=== PATIENT | female | born 1950 | race Caucasian/White ===

== ENCOUNTER 2016-07-19 06:44 | Inpatient (IN) | payer OTHER ==
--- NOTE | 2016-07-13 19:36 | HP ---
HISTORY AND PHYSICAL: DATE OF SURGERY: 07/19/16 PROCEDURE: Left total knee arthroplasty. CHIEF COMPLAINT: Left knee pain. HISTORY OF PRESENT ILLNESS: Ms. Swain is a 66-year-old female with complaints of left knee pain. She has failed conservative management, has elected to proceed with a left total knee arthroplasty. The surgery is scheduled for 07/19/[address] Chamberlain. PAST MEDICAL HISTORY: High cholesterol, hypothyroidism, sleep apnea. PAST SURGICAL HISTORY: Deviated septum surgery and 3 surgeries on her left hand. CURRENT MEDICATIONS: 1. Fluticasone daily. 2. Multivitamin. 3. Calcium. 4. Glucosamine. 5. Bupropion. 6. Levothyroxine. 7. Simvastatin. 8. Ibuprofen. ALLERGIES: SULFA DRUGS. FAMILY HISTORY: Prostate and skin cancer. SOCIAL HISTORY: She is a 66-year-old female. She lives with her . 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 She does not smoke or use drugs. She uses occasional alcohol. REVIEW OF SYSTEMS: A complete 14-point review of systems was reviewed with the patient. It is positive for hypothyroidism. She denies ever having any anesthesia problems, history of DVT, PE, hepatitis C, or HIV. PHYSICAL EXAMINATION GENERAL: She is well developed, well nourished, in no acute distress. VITAL SIGNS: She stands 5 feet 4 inches tall, weighs 176 pounds. Her blood pressure is 123/69, her heart rate is 64. HEENT: She is normocephalic, atraumatic. NECK: Supple. No palpable lymph nodes. Trachea is midline. PULMONARY: Lungs are clear to auscultation bilaterally. No wheezes, rhonchi, or rales. CARDIO: Regular rate and rhythm. Strong S1 and S2. No murmurs, gallops, or rubs. No peripheral edema. ABDOMEN: Soft, nontender, nondistended. MUSCULOSKELETAL: Left lower extremity, the skin is intact. She walks with a slightly antalgic type gait, favoring her left leg. There is moderate joint effusion, tenderness over the medial and lateral joint line. Full range of motion of the left knee, no varus or valgus instability. She has intact sensation with pinprick and light touch of her both legs and feet, 2+ dorsalis pedis pulses and her lower extremity muscle group strength is intact at 5/5. NEUROLOGICAL: She is alert and oriented x3. Cranial nerves II through XII are intact. ASSESSMENT AND PLAN: Ms. Swain is a 66-year-old female with continued complaints of left knee pain. She has failed conservative management and has elected to proceed with a left total knee arthroplasty, which is scheduled for 07/19/16. Dr. Chamberlain went over the risks and benefits of the surgery at today's visit and all of her questions were answered. Percocet, Colace, Coumadin, Zofran were all sent to her pharmacy for postoperative DVT prophylaxis and pain control. Zofran was sent for postoperative nausea, which she experiences with narcotic medications. She will follow up with Dr. Chamberlain 10 to 14 days after the surgery. ELAINE PIÑA [id number]/CPS #: [id number] MTDD
[~2016-07-19 06:44] MED LIST: Buffered Lidocaine 1% SYR 3ML* 3 ML/SYR SYRINGE INTRADERM ONE; Famotidine IV* 10 MG/ML 2 ML (20 mg) IV ONE; Gabapentin CAP(*) 300 MG PO ONE
[2016-07-19] MEDS ORDERED: ceFAZolin 2 GM PREMIX (*) 2 GM/50 ML BAG IVPB ONE (07:15)
[2016-07-19] MEDS ORDERED: Gabapentin CAP(*) 300 MG ONE (07:15)
[2016-07-19] MEDS ORDERED: Famotidine IV* 10 MG/ML 2 ML (20 mg) ONE (07:15)
[2016-07-19] MEDS ORDERED: Buffered Lidocaine 1% SYR 3ML* 3 ML/SYR SYRINGE ONE (07:15)
[2016-07-19] MEDS ORDERED: fentaNYL* 50 MCG/ML 2 ML VIAL (100 MCG VIAL) ONE (08:02)
[2016-07-19] MEDS ORDERED: Midazolam* 1 MG/ML 5 ML VIAL (5 MG) ONE (08:03)
[2016-07-19] MEDS ORDERED: KETAMINE HCL* 50 MG/ML 10 ML VIAL ONE (08:03)
[2016-07-19] MEDS ORDERED: Morphine PF AMP (0.5MG/ML)* 5 MG/10 ML AMP ONE (08:03)
[2016-07-19] MEDS ORDERED: Propofol* 10 MG/ML 20 ML BTL IV PUSH ONE (08:50)
[2016-07-19] MEDS ORDERED: Ketorolac INJ* 30 MG/ML 1 ML VIAL ONE (08:50)
[2016-07-19] MEDS ORDERED: DiMENhydriNATE IV* 50 MG/ML VIAL ONE (08:50)
[2016-07-19] MEDS ORDERED: Dexamethasone IV* 4 MG/ML 1 ML (4 MG) ONE (08:50)
[2016-07-19] MEDS ORDERED: Lidocaine 2% PF * 5 ML VIAL ONE (08:50)
[2016-07-19] MEDS ORDERED: Ondansetron INJ* 2 MG/ML VIAL ONE (08:50)
[2016-07-19] MEDS ORDERED: ROPIVACAINE 5 MG/ML 30 ML BTL (0.5%) ONE (08:56)
[2016-07-19] MEDS ORDERED: DiMENhydriNATE IV* 50 MG/ML VIAL IV PUSH PRN (09:40)
[2016-07-19] MEDS ORDERED: HYDROmorphone INJ* 1 MG/ML CARPUJECT SYRINGE IV PRN (09:40)
[2016-07-19] MEDS ORDERED: Gabapentin CAP(*) 100 MG PO ONE (09:42)
[2016-07-19] MEDS ORDERED: Nalbuphine* 20 MG/ML 1 ML VIAL IV PRN (09:44)
[2016-07-19] MEDS ORDERED: Naloxone* 0.4 MG/ML 1 ML VIAL IV PRN (09:44)
[2016-07-19] MEDS ORDERED: Ondansetron INJ* 2 MG/ML VIAL IV PRN (09:44)
[2016-07-19] MEDS ORDERED: oxyCODONE TAB* 5 MG TAB PO PRN (09:44)
[2016-07-19] MEDS ORDERED: Acetaminophen TAB* 325 MG PO PRN (09:44)
[2016-07-19] MEDS ORDERED: Acetaminophen TAB* 325 MG PO SCH (10:00)
[2016-07-19] MEDS ORDERED: Acetaminophen TAB* 325 MG ONE (10:45)
[2016-07-19] MEDS ORDERED: Magnesium Hydroxide LIQ* 30 ML UDC PO PRN (10:49)
[2016-07-19] MEDS ORDERED: Bisacodyl SUPP* 10 MG SUPP PR PRN (10:49)
[2016-07-19] MEDS ORDERED: diPHENhydraMINE PO* 25 MG PO PRN (10:49)
[2016-07-19] MEDS ORDERED: Gabapentin CAP(*) 100 MG ONE (11:19)
--- NOTE | 2016-07-19 11:38 | RAD ---
INDICATION: Status post total left knee replacement surgery. COMPARISON: Comparison is made with a prior x-ray study of the left knee from February 22, 2016. TECHNIQUE: 2 views of the left knee were obtained. FINDINGS: The patient is status post total left knee replacement surgery. The bones and prostheses are in normal alignment. No fracture is seen. There is a small amount of air within the soft tissues consistent with the patient's recent surgery. IMPRESSION: STATUS POST TOTAL LEFT KNEE REPLACEMENT SURGERY.
--- NOTE | 2016-07-19 13:27 | CONS ---
ATTENDING PHYSICIAN'S ADDENDUM AND CO-SIGN DESIGNATION NOW INCLUDED MEDICAL CONSULTATION DATE OF CONSULT: 07/19/16 PRIMARY CARE PROVIDER: Charlotte Naranjo MD REQUESTING PROVIDER: Brittany Chamberlain MD CONSULTING PROVIDER: ELAINE Morataya ATTENDING PHYSICIAN: Lu Roque MD * (DICTATED BY ELAINE MORATAYA) CHIEF COMPLAINT: Status post left total knee arthroplasty. HISTORY OF PRESENT ILLNESS: This is a 66-year-old female with history of hyperlipidemia, hypothyroidism, and obstructive sleep apnea, compliant with CPAP therapy, who underwent elective total knee arthroplasty by Dr. Chamberlain earlier today. Dr. Chamberlain has requested a medical consultation for comanagement postoperatively. Reviewed preop H and P from the patient's primary care provider, which illustrated no acute concerns. The patient's chronic medical conditions have been under appropriate control and the patient is compliant with her CPAP at home. She denies any recent illness. In the immediate postoperative period, the patient denies any complaints of chest pain, shortness of breath, abdominal pain, nausea, or vomiting. She had a spinal completed and still is rather numb in her lower extremities. She is bradycardic, but normotensive postoperatively , the patient denies any complaints of headache or dizziness. PAST MEDICAL HISTORY: 1. Hyperlipidemia. 2. Hypothyroidism. 3. Obstructive sleep apnea. PAST SURGICAL HISTORY: The patient has had multiple surgeries on her left hand and had a rhinoplasty completed for a deviated septum in the past. HOME MEDICATIONS: 1. Calcium and vitamin D supplement 1 tablet p.o. twice daily. 2. Glucosamine chondroitin 1 capsule p.o. twice daily. 3. Ibuprofen 800 mg p.o. q. 4 hours as needed. 4. Levothyroxine 88 mcg p.o. daily. 5. Nasonex 1 spray in both nares twice daily as needed. 6. Multivitamin 1 tablet p.o. daily. 7. Simvastatin 10 mg p.o. at bedtime. 8. Wellbutrin 150 mg p.o. b.i.d. SOCIAL HISTORY: The patient lives at home with her . She is employed at [employer]. Denies any history of tobacco abuse and consumes alcohol on an occasional basis. REVIEW OF SYSTEMS: As listed above in the HPI and otherwise negative. PHYSICAL EXAM: Recent Vitals: Temperature 97.5 degrees Fahrenheit, pulse 54 beats per minute, respiratory rate 16 per minute, oxygen saturation 98% on room air, and blood pressure 130/76 mmHg. General: This is a very pleasant, middle- aged female in no acute distress, who is smiling in the recovery area. HEENT: Head is normocephalic, atraumatic with moist mucous membranes. Cardiovascular: Heart has regular rate and rhythm without murmurs, rubs, or gallops. Respiratory: Lungs are clear to auscultation without wheezes, crackles, or rhonchi. Abdomen: Abdomen is soft and nontender to palpation. Extremities: Left knee is in a postoperative dressing with Cryo/Cuff in place. It appears to be intact neurovascularly distally. Psych: The patient is alert and appropriately oriented. LABORATORY EVALUATION: Reviewed preop labs dated 07/13/16, which included CBC was within normal limits, specifically preop hemoglobin was 14.7 g/dL. Comprehensive metabolic panel from that time was unremarkable, preop creatinine 1.05 with an estimated GFR of 52.8. Last TSH available for review is from December of 2015, which was normal at 2.62. Cholesterol panel from that same time showed a total cholesterol of 190 with an LDL of 89, HDL of approximately 50, and triglycerides 260. IMAGING: Chest x-ray from 07/13/16 shows no acute findings and no significant chronic findings appreciated. EKG from 07/19/16 shows a normal sinus rhythm with a rate of about 54. ASSESSMENT AND PLAN: This is a 66-year-old female with hyperlipidemia, hypothyroidism and obstructive sleep apnea, who presents for elective total knee arthroplasty by Dr. Brittany Chamberlain performed today 07/19/16. Hospitalist group has been requested for medical consult. 1. Status post left total knee arthroplasty. Postoperative management per Orthopedic Surgery including pain control, DVT prophylaxis, and discharge planning. 2. Postoperative bradycardia - review of her preop EKG and vitals show that the patient is borderline bradycardic and she did undergo spinal anesthesia which sometimes can contribute to some mild bradycardia. She is normotensive and asymptomatic at this time. I do not believe that any intervention is necessary. We would continue with typical postoperative vital checks per nursing protocol. 3. Hypothyroidism - continue levothyroxine. 4. Hyperlipidemia. Continue her statin therapy. 5. Obstructive sleep apnea - the patient brought her own CPAP with her and this has been ordered for use. 6. DVT prophylaxis per Orthopedic Surgery. The patient has Lovenox and Coumadin ordered for her postoperatively. 7. Code status. The patient is full code. 8. Healthcare proxy is the patient's , Josefina Morales. DISPOSITION: The patient is postoperative day 0, status post left total knee replacement. Recommendations include to continue all home medications and home CPAP therapy. There are really no significant medical concerns warranting continuous medical consultation. Hospitalist group will sign off at this time. We are happy to reevaluate the patient if there is any complications postoperatively. We recommend daily hemoglobin and basic metabolic panel on postop day 1. ELAINE MORATAYA DATE OF CONSULTATION: 07/19/16 ADDENDUM: Madeleine Swain is a 66-year-old female with history of dyslipidemia and hypothyroidism as well as obstructive sleep apnea who is status post left knee surgery with Dr. Chamberlain today. We were asked to consult in regards to the patient's chronic medical conditions. For further details of the patient's presentation and plan, please see history and physical/consultation report dictated by ELAINE Morataya, on 07/19/16 with which, I agree. LU ROQUE MD CC: Brittany Chamberlain MD* [id number]/CPS #: [id number] Jem- [id number]/CPS #: [id number] JOCY
--- NOTE | 2016-07-19 14:16 | CONS ---
CONSULTATION REPORT:* DATE OF CONSULTATION: 07/19/16 ADDENDUM: Madeleine Swain is a 66-year-old female with history of dyslipidemia and hypothyroidism as well as obstructive sleep apnea who is status post left knee surgery with Dr. Chamberlain today. We were asked to consult in regards to the patient's chronic medical conditions. For further details of the patient's presentation and plan, please see history and physical/consultation report dictated by ELAINE Osei, on 07/19/16 with which, I agree. [id number]/[facility] #: [id number] [facility]
[2016-07-19] MEDS: ceFAZolin 1 GM in Dextrose (*) 1 GM/50 ML BAG IVPB SCH ×2 (14:36→20:39)
[2016-07-19] MEDS: Ibuprofen TAB* 600 MG PO SCH ×2 (15:58→22:10)
[2016-07-19] MEDS ORDERED: Warfarin TAB(*) 6 MG PO ONE (17:00)
[2016-07-19] MEDS: buPROPion SR TAB.SR* 150 MG PO SCH (20:38)
[2016-07-19] MEDS: Atorvastatin* 10 MG TAB PO SCH (20:39)
[2016-07-19] MEDS: Docusate CAP* 100 MG PO SCH (20:39)
[2016-07-20] MEDS ORDERED: Morphine INJ* 2 MG/ML 1 ML CARPUJECT IV PRN (01:44)
[2016-07-20] MEDS ORDERED: Ondansetron INJ* 2 MG/ML VIAL IV PRN (01:44)
[2016-07-20] MEDS ORDERED: Acetaminophen TAB* 325 MG PO PRN (01:44)
[2016-07-20] MEDS ORDERED: oxyCODONE/Acetamin 5/325 MG* TAB PO PRN (01:44)
[2016-07-20] MEDS: ceFAZolin 1 GM in Dextrose (*) 1 GM/50 ML BAG IVPB SCH (02:34)
[2016-07-20] MEDS: Ibuprofen TAB* 600 MG PO SCH ×2 (04:10→10:01)
[2016-07-20] MEDS: Levothyroxine TAB* 88 MCG TAB PO SCH (05:56)
[2016-07-20 07:00] LABS: Hematocrit 33 % (35-47); Hemoglobin 10.7 g/dl (12.0-16.0)
[2016-07-20 07:03] LABS: BUN/Creatinine Ratio 13.6 (8-20); Calcium 8.4 mg/dL (8.6-10.3); EGFR African American 83.2 (>60); EGFR Non-African American 64.7 (>60); Potassium 4.1 mmol/L (3.5-5.0)
--- NOTE | 2016-07-20 07:40 | PN ---
Progress Note - Progress Note SOAP: Subjective: Pt. reports pain is mod-sev this AM. Objective: LLE - dressing c/d/i. distally +df/pf, full sens lt, 2+ dp pulse. Vital Signs: Temp Pulse Resp BP Pulse Ox 97.5 F 57 18 93/51 97 07/20/16 03:58 07/20/16 03:58 07/20/16 07:33 07/20/16 03:58 07/20/16 07:29 Laboratory Results - last 24 hr 07/20/16 07/20/16 07/20/16 06:05 06:05 06:05 Hgb 10.7 L Hct 33 L INR (Anticoag Therapy) 0.97 Sodium 134 Potassium 4.1 Chloride 104 Carbon Dioxide 21 L Anion Gap 9 BUN 12 Creatinine 0.88 Est GFR ( Amer) 83.2 Est GFR (Non-Af Amer) 64.7 BUN/Creatinine Ratio 13.6 Glucose 100 Calcium 8.4 L Assessment: 66 yo F pod 1 s/p LTKA Plan: xrays look good pt/ot - wbat lle 8 mg coumadin tonight, lovenox bridge hct stable d/c plan home with vns
[2016-07-20] MEDS: oxyCODONE/Acetamin 5/325 MG* TAB PO PRN ×4 (07:43→19:56)
[2016-07-20] MEDS: Vitamin THERAPEUTIC TAB PO SCH (08:10)
[2016-07-20] MEDS: Docusate CAP* 100 MG PO SCH ×2 (08:10→19:55)
[2016-07-20] MEDS: buPROPion SR TAB.SR* 150 MG PO SCH ×2 (08:10→19:56)
--- NOTE | 2016-07-20 08:32 | OP ---
OPERATIVE REPORT: DATE OF OPERATION: 07/19/16 DATE OF : 54 SURGEON: Brittany Chamberlain MD WRAPPER COUNTER: ELANIE Taveras ANESTHESIOLOGIST: Dr. Tello. ANESTHESIA: Spinal. PRE-OP DIAGNOSIS: Severe end-stage degenerative osteoarthritis of the left knee joint. POST-OP DIAGNOSIS: Severe end-stage degenerative osteoarthritis of the left knee joint. OPERATIVE PROCEDURE: Left total knee arthroplasty. TOURNIQUET TIME: 50 minutes. ESTIMATED BLOOD LOSS: 200 cc. COMPLICATIONS: None. SPECIMEN: Bone and cartilage from the left knee joint sent to pathology. HARDWARE: This is cemented [employer] total knee hardware. For the femur, a size 4 left post erior stabilized Oxinium femoral component. For the tibia, a size 3 Johanna left tibial base plate. For the insert, a 13-mm posterior stabilized articular insert. For the patella, 29-mm 7.5 thickne ss, 3-peg all-poly patella. BRIEF HISTORY/INDICATIONS: Ms. Swain is a 66-year-old female with years of increasingly severe lef t knee pain. She failed conservative treatment with anti- inflammatories, pain medication, physical therapy, brace wear, intra-articular injections and arthroscopy. At the time of arthroscopy, she w as found to have severe end-stage arthritis under the patella as well as in the medial compartment. The patient had decreased quality of life due to pain and elected to undergo left total knee arthrop lasty. Informed consent was obtained from the patient. She understood the risks of the surgery inc luded but were not limited to bleeding, infection, damage to nearby structures, continued pain, need for further surgery, intraoperative fracture, nerve palsy, hardware failure or loosening, stroke, h eart attack, blood clot, and . The patient wished to proceed. INTRAOPERATIVE FINDINGS: Intraoperatively, the patient was noted to have full thickness degeneratio n of the cartilage in the medial and patellofemoral compartments, significant osteophyte formation. DESCRIPTION OF PROCEDURE: Ms. Swain was identified in the preanesthesia unit. Her left lower extre mity was marked as the correct operative side. Informed consent was signed and placed in the chart. The patient was taken to the operating room and placed under spinal anesthesia. A Thomas catheter was placed. Thigh-high tourniquet was placed on the left thigh. Left lower extremity was prepped a nd draped in the usual sterile fashion. Preop time-out was made to correctly identify the patient's side and site. Appropriate perioperative antibiotics were given within one hour of incision. Tourniquet was inflated. Total tourniquet time for this procedure was 50 minutes. A 12-cm midline incision was made with a 10 blade and carried down to the extensor mechanism. A new 10 blade was used to make a standard medial parapatellar arthrotomy. The patella was subluxed late rally. Electrocautery was used to subperiosteally elevate soft tissue off the superomedial tibia. The knee was flexed up. Anterior horn of the lateral meniscus and ACL was sharply incised. The dri ll was used to enter the distal femur. Intramedullary distal femoral cutting guide was pinned into position on the distal femur. Oscillating saw was used to make the appropriate distal femoral cut. Bony fragments were carefully removed. An external rotation guide was pinned on the distal femur. Distal femur was sized to a size 4. Size 4 multi-cutting jig was placed on the distal femur. Oscil lating saw was used to make the appropriate chamfer cuts. All bony fragments were carefully removed . The PCL was completely released. The tibia was subluxed anteriorly. The extramedullary tibial c utting guide was placed and pinned into proper position on the proximal tibia. Oscillating saw was used to make a proximal tibial cut perpendicular to the mechanical axis of the tibia. Proximal tibi al bone was carefully removed. At this point, the knee was brought out into full extension. A spacer block had good fit. There wa s full extension of the knee. There was good medial and lateral ligamentous balancing. The knee was flexed up. Lamina thermal molder was placed both medially and laterally. Any remaining menis cus was carefully removed with electrocautery. Curved osteotome and curette were used to remove any osteophytes from the posterior femoral condyles. Tibial tray and drop crista once again confirmed sat isfactory proximal tibial cut. The trial 4 left femur was impacted onto the distal femur. The box for the posterior stabilized implant was prepared using a reamer and box cut osteotome. A size 3 tr ial tibial and 11 mm insert trial were placed. The knee was taken through a range of motion. The k nee had full extension, and 130 degrees of flexion with good patellofemoral tracking. The patella was everted. 7 mm of patellar bone and cartilage were carefully removed with an oscilla ting saw. The patella was sized to a size 29. Three pegs were drilled through the size 29 guide. A 7.5 thickness 29 trial was placed and the knee was taken through a range of motion. There was goo d patellofemoral tracking. All trials were carefully removed. The tibia was subluxed anteriorly and sized to a size 3. Proxim al tibia was prepared using a size 3 keel punch. All bony cut surfaces were copiously irrigated wit h sterile saline and dried. The final implants were cemented into place, starting with the tibia, f ollowed by the femur, and last the patella. A 13-mm trial was placed and the knee was brought into full extension. The cement was allowed to fully cure, and the tourniquet was turned down at 50 delbert aime. Posterior capsule was checked for any bleeding or excess cement. Final insert was a 13 mm posterior stabilized articular insert. This was locked in position on the tibial tray. Stability of the ins ert and the tibial tray was checked and rechecked, and noted to be stable. The knee was copiously irrigated with sterile saline. Full range of motion 0 to 125 degrees of flex ion with good patellofemoral tracking. Good extension and flexion gap balancing. Good medial and l ateral ligamentous balancing. The extensor mechanism was closed using interrupted #1 Vicryls. The rest of the incision was closed in a layered fashion using 0 and 2-0 Vicryls. Skin was closed using running 3-0 nylon suture. Sterile Xeroform, 4x4s, and Webril were used to cover the incision. YAN wrap and cold pack were placed over this. The patient's anesthesia was reversed without difficulty. She was taken to the PACU in stable condition. Intended weightbearing will be weightbearing as to lerated. Intended DVT prophylaxis will be Coumadin with Lovenox bridge. [id number]/[facility] #: [id number]
[2016-07-20] MEDS: Enoxaparin(*) 40 MG/0.4 ML SYR SUBCUT SCH (10:43)
[2016-07-20] MEDS ORDERED: Warfarin TAB(*) 4 MG PO ONE (17:00)
[2016-07-20] MEDS: Cyclobenzaprine TAB* 10 MG PO PRN (19:55)
[2016-07-20] MEDS: Atorvastatin* 10 MG TAB PO SCH (19:56)
[2016-07-21] MEDS: oxyCODONE/Acetamin 5/325 MG* TAB PO PRN ×5 (00:02→20:49)
[2016-07-21] MEDS: oxyCODONE TAB* 5 MG TAB PO PRN (02:54)
[2016-07-21] MEDS: Levothyroxine TAB* 88 MCG TAB PO SCH (05:34)
[2016-07-21] MEDS: Cyclobenzaprine TAB* 10 MG PO PRN ×2 (05:34→21:02)
[2016-07-21 07:14] LABS: Hematocrit 29 % (35-47); Hemoglobin 10.1 g/dl (12.0-16.0)
[2016-07-21] MEDS: oxyCODONE SR TAB(*) 10 MG TAB.SR PO SCH ×2 (08:17→20:48)
[2016-07-21] MEDS: Vitamin THERAPEUTIC TAB PO SCH (08:17)
[2016-07-21] MEDS: Docusate CAP* 100 MG PO SCH ×2 (08:17→20:48)
[2016-07-21] MEDS: buPROPion SR TAB.SR* 150 MG PO SCH ×2 (08:18→20:48)
--- NOTE | 2016-07-21 08:56 | PN ---
Progress Note - Progress Note SOAP: Subjective: []Patient seen at bedside. Doing fairly well. Oxycontin has been given this am. Objective: [] Vital Signs Temp 98.4 F 07/21/16 07:32 Pulse 65 07/21/16 07:32 Resp 16 07/21/16 08:17 BP 112/58 07/21/16 07:32 Pulse Ox 98 07/21/16 07:32 Intake & Output 07/20/16 07/21/16 07/21/16 18:59 06:59 18:59 Intake Total 2215 1240 Output Total 2575 3850 700 Balance -360 -2610 -700 Intake: IV Fluids 990 LR 990 IVPB 55 ABX - CEFAZOLIN 55 Oral 1170 1240 Output: Urine 1700 3850 700 Thomas 875 Laboratory Results - last 24 hr 07/21/16 07/21/16 06:49 06:49 Hgb 10.1 L Hct 29 L INR (Anticoag Therapy) 1.22 H Left knee dressing changed this am by Dr. Chamberlain, benign calf non tender and soft, Rusty's negative NVI +DF/PF Assessment: []s/p Left total knee arthoplasty POD #2 Plan: []PT/OT WBAT Coumadin 8mg tonight Home tomorrow
[2016-07-21] MEDS: Enoxaparin(*) 40 MG/0.4 ML SYR SUBCUT SCH (11:24)
[2016-07-21] MEDS ORDERED: Warfarin TAB(*) 4 MG PO ONE (17:00)
[2016-07-21] MEDS: Atorvastatin* 10 MG TAB PO SCH (20:48)
[2016-07-22] MEDS: oxyCODONE TAB* 5 MG TAB PO PRN (01:11)
[2016-07-22] MEDS: oxyCODONE/Acetamin 5/325 MG* TAB PO PRN ×3 (04:20→12:40)
[2016-07-22] MEDS: Cyclobenzaprine TAB* 10 MG PO PRN (05:12)
[2016-07-22] MEDS: Levothyroxine TAB* 88 MCG TAB PO SCH (05:12)
[2016-07-22 07:05] LABS: Hematocrit 28 % (35-47); Hemoglobin 9.8 g/dl (12.0-16.0)
[2016-07-22] MEDS: oxyCODONE SR TAB(*) 10 MG TAB.SR PO SCH (08:39)
[2016-07-22] MEDS: buPROPion SR TAB.SR* 150 MG PO SCH (08:40)
[2016-07-22] MEDS: Docusate CAP* 100 MG PO SCH (08:40)
[2016-07-22] MEDS: Vitamin THERAPEUTIC TAB PO SCH (08:40)
[2016-07-22] MEDS: Enoxaparin(*) 40 MG/0.4 ML SYR SUBCUT SCH (11:10)
--- NOTE | 2016-07-22 11:51 | PN ---
Progress Note - Progress Note SOAP: Subjective: [c. Patient reports pain under control with current pain regimen. + BM, moving well, working well with PT. ALl questions answered to her and her partner. ] Objective: [General- Well appearing, NAD resting comfortably in bed. MSK- Incision c/d/i. no erythema. drainage noted. + dorsi/ plantarflexion b/ l, neg homans b/l, sensation to light touch grossly intact. PT 2+ L leg. moderate swelling over L knee. ] Active Medications Generic Name Dose Route Start Last Admin Trade Name Freq PRN Reason Stop Dose Admin Acetaminophen 650 mg 07/20/16 01:44 Tylenol Tab* PO Q4H PRN PAIN OR TEMPERATURE Atorvastatin Calcium 5 mg 07/19/16 21:00 07/21/16 20:48 Lipitor* PO 5 mg BEDTIME MY Administration Bisacodyl 10 mg 07/19/16 10:49 07/21/16 20:51 Dulcolax Supp* AK 10 mg DAILY PRN Administration constipation Bupropion HCl 150 mg 07/19/16 21:00 07/22/16 08:40 Wellbutrin Sr Tab* PO 150 mg BID MY Administration Cyclobenzaprine HCl 10 mg 07/20/16 17:47 07/22/16 05:12 Flexeril Tab* PO 10 mg Q8H PRN Administration SPASMS Diphenhydramine HCl 25 mg 07/19/16 10:49 Benadryl Po* PO Q6H PRN itching or insomnia Docusate Sodium 100 mg 07/19/16 21:00 07/22/16 08:40 Colace Cap* PO 100 mg BID MY Administration Enoxaparin Sodium 40 mg 07/20/16 11:00 07/22/16 11:10 Lovenox(*) SUBCUT Not Given Q24H MY Lactated Ringer's 1,000 mls @ 100 mls/hr 07/19/16 11:00 07/19/16 23:12 Lactated Ringers 1000 Ml Bag* IV 100 mls/hr PER RATE MY Administration Lactulose 30 ml 07/19/16 10:49 Lactulose* PO Q6H PRN constipation Levothyroxine Sodium 88 mcg 07/20/16 06:00 07/22/16 05:12 Synthroid Tab* PO 88 mcg 0600 MY Administration Magnesium Hydroxide 30 ml 07/19/16 10:49 07/21/16 08:24 Milk Of Magnesia Liq* PO 30 ml Q6H PRN Administration constipation Morphine Sulfate 2 mg 07/20/16 01:44 07/21/16 00:05 Morphine Inj (Syringe)* IV 2 mg Q30M PRN Administration PAIN - UNCONTROLLED Multivitamins 1 tab 07/20/16 09:00 07/22/16 08:40 Theragran Tab* PO 1 tab DAILY MY Administration Ondansetron HCl 4 mg 07/20/16 01:44 07/21/16 00:06 Zofran Inj* IV 4 mg Q6H PRN Administration nausea Oxycodone HCl 10 mg 07/20/16 01:44 07/22/16 01:11 Roxycodone Tab* PO 10 mg Q4H PRN Administration PAIN - SEVERE Oxycodone HCl 10 mg 07/21/16 09:00 07/22/16 08:39 Oxycontin(*) PO 10 mg Q12HR MY Administration Oxycodone/Acetaminophen 1 tab 07/20/16 01:44 07/20/16 05:56 Percocet 5/325 Tab* PO 1 tab Q4H PRN Administration PAIN - MILD Oxycodone/Acetaminophen 2 tab 07/20/16 01:44 07/22/16 08:40 Percocet 5/325 Tab* PO 2 tab Q4H PRN Administration PAIN - MODERATE Pharmacy Profile Note 1 note 07/20/16 17:00 07/21/16 16:35 Coumadin Daily Reminder* FOLLOW UP 1 note 1700 MY Administration Vital Signs Temp 98.8 F 07/22/16 07:31 Pulse 82 07/22/16 07:31 Resp 16 07/22/16 10:39 BP 127/59 07/22/16 07:31 Pulse Ox 94 07/22/16 07:31 Intake & Output 07/21/16 07/22/16 07/22/16 18:59 06:59 18:59 Intake Total 1959 2039 1049 Output Total 1999 3499 Balance -40 -1460 1050 Intake: Oral 1959 2039 1049 Output: Urine 1999 3499 Other: Estimated Void Medium # Voids 1 Laboratory Results - last 24 hr 07/22/16 07/22/16 06:32 06:33 Hgb 9.8 L Hct 28 L INR (Anticoag Therapy) 2.17 H Assessment: [/- 4mg 2/- 6mg 2/12- 4mg INR check 07/25 ] Plan: [- D/C home today - Follow up with DR. Chamberlain within 10-14 days - DVT prophylaxis- coumadin: 07/22- 4mg /- 6mg /- 4mg INR check 07/25 - Continue current pain regimen ]
[2016-07-22 11:59] VITALS: BP 118/65
--- NOTE | 2016-07-22 23:51 | DS ---
DISCHARGE SUMMARY: DATE OF ADMISSION: 07/19/16 DATE OF DISCHARGE: 07/22/16 CHIEF COMPLAINT: 1. Osteoarthritis, left knee. 2. Elevated cholesterol. 3. Hypothyroidism. 4. Sleep apnea. DISCHARGE DIAGNOSES: 1. Status post left total knee arthroplasty. 2. Elevated cholesterol. 3. Hypothyroidism. 4. Sleep apnea. PROCEDURE: Left total knee arthroplasty. CONSULTATIONS: 1. Physical therapy. 2. Occupational therapy. BRIEF HISTORY: Ms. Swain is a very pleasant 66-year-old female with severe end- stage osteoarthrit is of the left knee who failed conservative treatment and has elected to undergo a left total knee a rthroplasty on 07/19/[address] Brittany Chamberlain. HOSPITAL COURSE: Ms. Swain was admitted to the [facility] on 07/19/16, where she underw ent a left total knee arthroplasty. Postoperatively, she recovered on the surgical short-stay unit. On postoperative day 2, her Thomas was removed and the patient was voiding without difficulty. She was advanced to a regular diet. Her pain was controlled with p.o. oxycodone, p.o. OxyContin, and Fl exeril. She was restarted on her home medications. Her vital signs and labs remained stable. She was able to bear weight as tolerated on the left lower extremity. She advanced appropriately with p hysical therapy and occupational therapy. Her DVT prophylaxis was managed with Lovenox and Coumadin until she reached therapeutic INR. By postoperative day 3, she was orthopedically and medically st able for discharge home with home services. PHYSICAL EXAMINATION: General: The patient is alert and oriented and in no acute distress. She is resting in bed comfortably. Vital Signs: Temperature 98.8, pulse 82, respirations 16, blood press ure 127/59, pulse oxygenation 94%. Incision over left knee, clean, dry and intact with no erythema, no drainage noted. Positive dorsiflexion and plantar flexion of bilateral lower extremities. Negat august Rusty's sign in bilateral lower extremities. Sensation to light touch grossly intact in lower e xtremities. Posterior tibial pulse 2+ on left leg. Moderate swelling noted over left knee. LABORATORY DATA: On the date of discharge, H and H of 9.8 and 28 with an INR of 2.17. RADIOGRAPHS: Postoperative radiographs of the left knee demonstrates satisfactory prosthesis placem ent. DISCHARGE MEDICATIONS: 1. Simvastatin 10 mg p.o. at bedtime. 2. Colace 100 mg p.o. b.i.d. 3. Levothyroxine 88 mcg p.o. daily. 4. Wellbutrin 150 mg p.o. b.i.d. 5. OxyContin 10 mg q.12 hours. 6. Oxycodone 5 to 10 mg p.o. q.4 hours p.r.n. 7. Calcium plus vitamin D 1 tablet b.i.d. 8. Flexeril 10 mg p.o. q.8 hours. p.r.n. 9. Glucosamine and chondroitin 1 tablet p.o. b.i.d. 10. Nasonex 1 spray bilateral nares q.h.s. 11. Daily multivitamin. 12. Coumadin 2 mg 1 to 3 tablets as directed by physician at 5 p.m. daily. CONDITION ON DISCHARGE: Stable. DISCHARGE INSTRUCTIONS: Ms. Swain is a very pleasant 66-year-old female on postoperative day 3, [facility] post post left total knee arthroplasty, which is uncomplicated. She is orthopedically and medi grover stable for discharge to go home with home services. Her labs and vital signs are stable. She will restart her home medications. She will take 4 mg of Coumadin on 07/22/16; on 07/23/16, 6 mg a nd on 07/24/16, 4 mg and will have an INR check on 07/25/16. She will remain weightbearing as lenora ated on the left lower extremity. She will have home physical therapy twice a week. She will take oxycodone as needed for acute pain control and will take OxyContin q.12 hours for long acting pain c ontrol, she will take Colace up to 3 times a day as for constipation. She will follow up with Dr. Shivani barajas in approximately 10 to 14 days for incision check and suture removal. She is instructed to go immediately to the emergency room should she develop chest pain or shortness of breath. Should she develop fever, increasing pain or redness around the incision site, she is to call the office [employer]. ELAINE MORALES [id number]/[facility] #: [id number]
== END 2016-07-22 14:15 | disposition home health service (06) | DRG 470 ==
LOC: AA 06:44 → SSU 13:54
PROVIDERS: ADMIT Orthopaedic Surgery Adult Reconstructive Orthopaedic Surgery; ATTEND Orthopaedic Surgery Adult Reconstructive Orthopaedic Surgery
PROC: 0SRD0J9 Replacement of Left Knee Joint with Synthetic Substitute, Cemented, Open Approach (ICD-10-PCS; principal; 2016-07-19 08:30)
DX: M17.12 Unilateral primary osteoarthritis, left knee (principal); R00.1 Bradycardia, unspecified; G47.30 Sleep apnea, unspecified; E78.00 Pure hypercholesterolemia, unspecified; E03.9 Hypothyroidism, unspecified; Z88.2 Allergy status to sulfonamides; E78.5 Hyperlipidemia, unspecified; G47.33 Obstructive sleep apnea (adult) (pediatric); Z79.01 Long term (current) use of anticoagulants; Z80.0 Family history of malignant neoplasm of digestive organs; Z80.8 Family history of malignant neoplasm of other organs or systems; Z80.42 Family history of malignant neoplasm of prostate; Z81.8 Family history of other mental and behavioral disorders; Z82.61 Family history of arthritis; Z82.0 Family history of epilepsy and other diseases of the nervous system; Z82.49 Family history of ischemic heart disease and other diseases of the circulatory system; Z72.89 Other problems related to lifestyle
CPT/HCPCS: 36415; 80048; 85014; 85018; 85610; 88305; 88311; A9270-GY; C1776; J0690; J1100; J1240; J1650; J1885; J2250; J2270; J2405; J2704; J2795; J3010

== ENCOUNTER 2018-12-05 21:31 | Emergency (ER) | payer OTHER ==
--- OUTSIDE RECORDS SUMMARY | 2018-12-05 21:36 | XMS REPORT | Continuity of Care Document ---
:1950 External Reference #:[id number] Author Name Charlotte Naranjo M.D., R.D. Address [address] [place] [address] Care Team Providers Name Role Phone Charlotte Naranjo M.D., R.DMonalisa Care Team Information Platform Builder Unavailable Payers Date Identification Numbers Payment Provider Subscriber Effective: 2007 Policy Number: [id number] [employer] Madeleine Swain Group Number: [id number] [address] PayID: [id number] [place] [address] Problems Active Problems Provider Date Hypothyroidism Simona Morales M.D. Onset: 02/15/2012 Pure hypercholesterolemia Simona Morales M.D. Onset: 02/15/2012 Sleep apnea Simona Morales M.D. Onset: 02/15/2012 Hearing loss Simona Morales M.D. Onset: 02/15/2012 Plantar fascial fibromatosis Simona Morales M.D. Onset: 02/15/2012 Family History Date Family Member(s) Observation Comments : (10/2015) Father due to "Old Age" 92 years Onset: (age 68 Years) Father Cancer, Colon Father Cancer, Skin basal cell ca Father Cancer, Prostate : (03/2010) Mother due to CHF Mother Osteoporosis : (age 85 Mother due to CHF Years) Mother Alzheimer's Disease Mother due to Alzheimer's () Disease Mother Depression Mother Arthritis Siblings 5 Social History Type Date Description Comments Sex Unknown Marital Status Lives With Lives with female partner, Josefina. Diet 04/03/2014 Healthy, Well eats healthy foods Balanced Pets None Occupation Currently Working runs [employer] at [employer] Tobacco Use Start: Unknown Never Smoked Cigarettes ETOH Use Currently consumes Glass of wine 3-4 times alcohol weekly Recreational Drug Use Denies Drug Use Tobacco Use Start: Unknown Patient has never smoked Smoking Status Reviewed: Patient has never 11/30/18 smoked Exercise Type/Frequency Exercises regularly Doing PT 09/2016 after TKR. 09/2017 biking, yoga Allergies, Adverse Reactions, Alerts Active Allergies Reaction Severity Comments Date Sulfa 08/04/2005 Medications Active Medications SIG Qnty Indications Ordering Date Provider Cpap with all tubing 1units Charlotte Naranjo, 10/09/2018 and accessories Zoila, R.D. Nasonex two puff to each 1units J32.9 Charlotte Nraanjo, 11/21/2016 50mcg/Act nostril every M.D., R.D. Suspension morning as needed nasal congestion Mometasone Furoate Inhale 2 Sprays To 17units J32.9 Charlotte Naranjo, 2016 Each Nostril Every M.D., R.D. 50mcg/Act Suspension Morning as Needed For Nasal Congestion Levothyroxine Sodium take 1 tablet by 30tabs E03.9 Charlotte Naranjo, 2016 mouth once daily M.DMonalisa, R.D. 88mcg Tablets Simvastatin take 1 tablet by 30tabs E78.0 Naty Rothman 01/18/2013 10mg mouth at bedtime LYDIA MeredithP-C Tablets Bupropion HCL ER (XL) take 1 tablet by 60tabs Charlotte Naranjo, 03/16/2012 mouth twice a day M.DMonalisa, R.D. 150mg Tablets ER 24HR Ibuprofen 1 by mouth q8 90tabs M72.2 Charlotte Naranjo, 01/18/2006 800mg Tablets hours as needed M.DMonalisa, R.D. heel pain, take with food Glucosamine Twice daily by Unknown Chondroitin 500 mouth Complex 500Comp Capsules Multivitamin Adults One Daily Unknown 50+ Adlt 50+ Tablets Calcium 1000 + D Two Daily Unknown [id number] Tablets History Medications Metaxalone tid per Ortho since Charlotte Naranjo, 09/23/2016 - 800mg TKR Ziola R.DMonalisa 04/17/2017 Tablets Percocet per Ortho after TKR Charlotte Naranjo, 09/23/2016 - 5-325mg Zoila R.DMonalisa 04/17/2017 Tablets Levothyroxine Sodium 1 by mouth every 30tabs E03.9 Charlotte Naranjo, 2016 - day Zoila R.DMonalisa 09/23/2016 100mcg Tablets Levothyroxine Sodium take 1 tablet by 30tabs E03.9 Charlotte Naranjo, 2012 - mouth once daily Zoila R.DMonalisa 09/22/2016 88mcg Tablets Excuse For Work must be out of work Simona Osborne 03/20/2012 - 03/05/12 until Zoila Morales 06/20/2012 further notice, for medical reasons Wheelchair for use following 1units Simona Osborne 03/14/2012 - Misc complicated Le Zoila Morales 06/20/2012 fracture Handicapped Status Patient is unable Simona Osborne 03/09/2012 - to ambulate due to Zoila Morales 06/20/2012 complicated bilmalleolar ankle fracture, until 05/12/12. Acetaminophen/Codein one to two po qid 20tabs 824.2 Simona Osborne 2011 - e #3 prn severe pain Zoila Morales 03/06/2012 300-30mg Tablets Oxycodone/Acetaminop i-ii po qid prn 20tabs 824.2 Simona Osborne 03/06/2012 - hen severe pain Zoila Morales 06/21/2012 5-325mg Tablets Synthroid 1 po qd 30tabs 244.9 Shawntcristiane Rothman 02/15/2012 - 88mcg Masoud, MANIPULATIVE THERAPY SPECIALIST-C 06/21/2012 Tablets Wellbutrin XL one po bid 60tabs 311 Simona Osborne 01/05/2012 - 150mg Zoila Morales 06/03/2013 Tablets ER 24HR Nasonex two puff to each 1units 473.9 Madeleine John, 03/15/2010 - 50mcg/Act nostril qam prn [facility] 01/06/2016 Suspension nasal congestion Physical Therapy r knee pain, 12units 719.46 Simona Osborne 08/06/2008 - evaluate and treat Zoila Morales 03/15/2010 Xanax 1/2 to 1 tab by 30tabs F[facility].0 [facility]2008 - 0.25mg Tablets mouth three times a [facility] 11/30/2018 day as needed anxiety or up to 2 by mouth at at bedtime as needed insomnia Keflex 1 po bid for 10 40caps 959.5 [facility] 01/11/2008 - 500mg Capsules days [facility] 08/06/2008 Zocor 1 po qhs and rto 30tabs 272.0 Naty RMonalisa 06/01/2007 - 10mg Tablets for fasting lipid [facility] 01/18/2013 profile in 6 months Zocor one po qhs and 30tabs 272.0 Simona Osborne 04/27/2007 - 5mg Tablets check statin Zoila Morales 06/01/2007 profile in 4 to 6 weeks Kenalog apply bid to tid to 15G Simona Osborne 03/26/2007 - 0.1% Cream scaling rash on Zoila Morales 02/15/2012 left cheek Augmentin one bid x14 days 28tabs 461.8 Adwoa AMonalisa 08/04/2005 - 875mg Eric, 08/30/2005 Tablets [facility] Garamycin Ophthalmic one to two gtts 1Bottle Adwoa AMonalisa 08/04/2005 - gtts every 4-6 hours Eric, 08/30/2005 until sx resolved [facility] for 5 days Synthroid 1 po qd 30tabs 244.9 Simona Osborne 06/23/2005 - 75mcg Zoila Morales 02/15/2012 Tablets Synthroid 1 po qd 30tabs Simona Osborne 03/19/2004 - 50mcg Zoila Morales 06/23/2005 Tablets Antivert one to two po bid 45tabs 386.10 Simona Osborne 03/01/2004 - 12.5mg to qid prn vertigo Zoila Morales 10/24/2005 Tablets Synthroid one po qd 30tabs Simona Osborne 01/28/2004 - 25mcg Zoila Morales 03/19/2004 Tablets Anaprox DS One Bid-tid With 60tabs 727.41 Simona Osborne 01/26/2004 - 550mg Food For Back Pain Zoila Morales 08/04/2005 Tablets Wellbutrin SR one po bid 60tabs 311 Simona Osborne 01/26/2004 - 150mg Zoila Morales 01/05/2012 Tablets Physical Therapy evaluate and treat 12units 723.1 Simona Osborne 01/26/2004 - Neck pain Zoila Morales 08/04/2005 Cleocin 1% Ointment apply bid to 30Grams 782.1 Simona Osborne 07/22/2003 - lesions on cheeks. Zoila Morales 12/21/2005 1% Ointment Zoloft one and one half qd 45tabs 311 Simona Osborne 01/17/2003 - 100mg Tablets Zoila Morales 01/26/2004 Zoloft after a week of 25 14SG 311 Simona Osborne 12/27/2002 - 50mg Tablets mg qd, One qd Zoila Morales 01/17/2003 Nasonex NS Two Sprays Each 17gm 784.0 Simona Osborne 01/22/2002 - 50mcg Nostril qd Zoila Morales 08/04/2005 Hayti Claritin One qd 30tabs 784.0 Simona Osborne 01/22/2002 - 10mg Tablets Zoila Morales 08/04/2005 Cipro HC Otic 3 gtts In Affected 10ml Adwoa A. 08/25/2001 - Ear bid X 7 Days Eric, 01/22/2002 Solution [facility] Keflex One Bidx10 Days 20tabs Adwoa A. 08/25/2001 - 500mg Tablets Eric, 01/22/2002 [facility] Immunizations CPT Code Status Date Vaccine Lot # [id number] Given 10/20/2017 Tdap (Adacel) [id number] 46085 Given 09/20/2017 Prevnar-13 Pneumococcal Conjugate Vaccine [id number] 25690 Given 04/17/2017 Influenza Virus Vaccine, Quadrivalent, 3 Yr > [id number] Quad, Preserv Free 93646 Given 07/01/2016 Influenza Virus Vaccine, Quadrivalent, 3 Yr > [id number] Quad, Preserv Free 66594 Given 04/03/2014 Influenza Virus Vaccine, Quadrivalent, 3 Yr > [id number] Quad, Preserv Free 76489 Given 02/15/2012 Influenza Vaccine-Preservative Free 3 Yrs And [id number] Above 03599 Given 03/26/2007 Tdap (Adacel) [id number] Vital Signs Date Vital Result Comment 11/30/2018 10:53am Weight 172.00 lb Weight 78.019 kg BP Systolic 110 mmHg BP Diastolic 78 mmHg Heart Rate 66 /min Body Temperature 97.3 F Respiratory Rate 16 /min Height 63.5 inches 5'3.50" BMI (Body Mass Index) 30.0 kg/m2 O2 % BldC Oximetry 98 % 10/20/2017 3:45pm Weight 170.00 lb Weight 77.112 kg BP Systolic 142 mmHg BP Diastolic 84 mmHg Heart Rate 61 /min Body Temperature 97.9 F Respiratory Rate 15 /min O2 % BldC Oximetry 96 % 09/20/2017 9:33am Weight 175.00 lb Weight 79.380 kg BP Systolic 132 mmHg BP Diastolic 82 mmHg Heart Rate 63 /min Body Temperature 97.0 F Respiratory Rate 15 /min Height 64 inches 5'4" BMI (Body Mass Index) 30.0 kg/m2 O2 % BldC Oximetry 98 % 04/17/2017 10:09am Weight 176.00 lb Weight 79.834 kg BP Systolic 138 mmHg BP Diastolic 78 mmHg Heart Rate 64 /min Body Temperature 97.7 F O2 % BldC Oximetry 98 % 01/24/2017 11:53am Weight 171.00 lb Weight 77.566 kg BP Systolic 140 mmHg BP Diastolic 65 mmHg Heart Rate 60 /min Body Temperature 98.5 F O2 % BldC Oximetry 97 % 09/23/2016 9:43am Weight 166.00 lb Weight 75.298 kg BP Systolic 145 mmHg BP Diastolic 78 mmHg Heart Rate 64 /min Height 63.5 inches 5'3.50" BMI (Body Mass Index) 28.9 kg/m2 07/01/2016 11:29am Weight 177.00 lb Weight 80.287 kg BP Systolic 126 mmHg BP Diastolic 82 mmHg Heart Rate 61 /min Body Temperature 98.0 F Respiratory Rate 16 /min O2 % BldC Oximetry 98 % 01/06/2016 11:26am Weight 175.00 lb Weight 79.380 kg BP Systolic 140 mmHg BP Diastolic 80 mmHg Heart Rate 68 /min O2 % BldC Oximetry 97 % 04/03/2014 8:54am Weight 177.00 lb Weight 80.287 kg BP Systolic 128 mmHg BP Diastolic 76 mmHg Heart Rate 72 /min Height 64.5 inches 5'4.50" BMI (Body Mass Index) 29.9 kg/m2 03/06/2012 12:28pm BP Systolic 140 mmHg BP Diastolic 82 mmHg Heart Rate 80 /min Body Temperature 98.0 F 02/15/2012 8:22am Weight 178.00 lb Weight 80.741 kg BP Systolic 100 mmHg BP Diastolic 72 mmHg Heart Rate 72 /min Height 64.5 inches 5'4.50" BMI (Body Mass Index) 30.1 kg/m2 01/31/2011 10:37am Weight 180.00 lb wearing leg boot Weight 81.648 kg BP Systolic 110 mmHg BP Diastolic 76 mmHg Heart Rate 68 /min Body Temperature 97.8 F 10/19/2010 4:23pm Weight 175.00 lb Weight 79.380 kg BP Systolic 118 mmHg BP Diastolic 68 mmHg Heart Rate 78 /min Body Temperature 98.4 F 03/15/2010 9:28am Weight 173.00 lb Weight 78.473 kg BP Systolic 120 mmHg BP Diastolic 80 mmHg Heart Rate 72 /min Height 64.25 inches 5'4.25" BMI (Body Mass Index) 29.5 kg/m2 03/23/2009 3:56pm Weight 170.00 lb Weight 77.112 kg BP Systolic 108 mmHg BP Diastolic 64 mmHg Heart Rate 56 /min 12/19/2008 10:13am Weight 168.00 lb Weight 76.205 kg BP Systolic 128 mmHg BP Diastolic 80 mmHg Heart Rate 60 /min 09/17/2008 12:57pm Weight 173.00 lb Weight 78.473 kg BP Systolic 120 mmHg BP Diastolic 70 mmHg Heart Rate 60 /min 08/06/2008 10:42am Weight 173.00 lb Weight 78.473 kg BP Systolic 122 mmHg BP Diastolic 70 mmHg Heart Rate 60 /min Respiratory Rate 18 /min Height 64.3 inches 5'4.30" BMI (Body Mass Index) 29.4 kg/m2 01/11/2008 5:00pm Weight 169.00 lb Weight 76.658 kg BP Systolic 110 mmHg BP Diastolic 68 mmHg Heart Rate 78 /min Body Temperature 98.2 F Height 64.5 inches 5'4.50" BMI (Body Mass Index) 28.6 kg/m2 04/27/2007 11:55am Weight 178.00 lb Weight 80.741 kg BP Systolic 124 mmHg BP Diastolic 72 mmHg Heart Rate 58 /min Height 64.5 inches 5'4.50" BMI (Body Mass Index) 30.1 kg/m2 03/26/2007 12:27pm Weight 174.00 lb Weight 78.926 kg BP Systolic 140 mmHg BP Diastolic 70 mmHg Heart Rate 68 /min Height 64.5 inches 5'4.50" BMI (Body Mass Index) 29.4 kg/m2 01/18/2006 9:37am Weight 164.00 lb Weight 74.390 kg BP Systolic 130 mmHg BP Diastolic 80 mmHg Heart Rate 76 /min Height 64.25 inches 5'4.25" BMI (Body Mass Index) 27.9 kg/m2 12/21/2005 7:59am Weight 167.50 lb Weight 75.978 kg BP Systolic 120 mmHg BP Diastolic 68 mmHg Heart Rate 72 /min Height 64.25 inches 5'4.25" BMI (Body Mass Index) 28.5 kg/m2 10/31/2005 4:48pm Weight 168.00 lb Weight 76.205 kg BP Systolic 134 mmHg BP Diastolic 82 mmHg Body Temperature 97.6 F 10/24/2005 4:05pm Weight 160.00 lb Weight 72.576 kg BP Systolic 112 mmHg BP Diastolic 70 mmHg Heart Rate 76 /min 10/17/2005 12:17pm Weight 166.00 lb Weight 75.298 kg BP Systolic 128 mmHg BP Diastolic 78 mmHg Body Temperature 98.2 F 08/04/2005 11:42am Weight 166.00 lb Weight 75.298 kg BP Systolic 102 mmHg BP Diastolic 70 mmHg Body Temperature 98.2 F 03/01/2004 3:16pm Weight 171.00 lb Weight 77.566 kg BP Systolic 108 mmHg BP Diastolic 68 mmHg 01/26/2004 4:43pm Weight 160.00 lb Weight 72.576 kg BP Systolic 96 mmHg BP Diastolic 50 mmHg 07/22/2003 9:03am Weight 165.50 lb Weight 75.071 kg BP Systolic 100 mmHg BP Diastolic 68 mmHg Heart Rate 64 /min 02/24/2003 3:33pm Weight 161.00 lb Weight 73.030 kg BP Systolic 118 mmHg BP Diastolic 60 mmHg Heart Rate 76 /min Respiratory Rate 18 /min Height 64 inches BMI (Body Mass Index) 27.6 kg/m2 01/17/2003 10:54am Weight 160.00 lb Weight 72.576 kg BP Systolic 118 mmHg BP Diastolic 78 mmHg 12/27/2002 11:12am Weight 161.00 lb Weight 73.030 kg BP Systolic 100 mmHg BP Diastolic 60 mmHg 01/22/2002 3:25pm Weight 168.00 lb BP Systolic 118 mmHg BP Diastolic 70 mmHg Heart Rate 56 /min 11/22/2001 9:27am Weight 168.00 lb BP Systolic 104 mmHg BP Diastolic 62 mmHg Heart Rate 64 /min Height 64 inches BMI (Body Mass Index) 28.8 kg/m2 Results Test Date Facility Test Result H/L Range Note CBC W/Auto 11/26/2018 [facility] White Blood 5.7 10^3 /uL N 3.5-10.8 Differential [phone] Count Red Blood Count 4.72 10^6/uL N 3.70-4.87 Hemoglobin 13.9 g/dL N 12.0-16.0 Hematocrit 40 % N 35-47 Mean Corpuscular Volume 85 fL N 80-97 Mean Corpuscular Hemoglobin 30 pg N 27-31 Mean Corpuscular HGB Conc 35 g/dL N 31-36 Red Cell Distribution Width 13 % N 10-15 Platelet Count 197 10^3/uL N 150-450 Mean Platelet Volume 7.7 fL N 7.4-10.4 Abs Neutrophils 2.9 10^3/uL N 1.5-7.7 Abs Lymphocytes 2.2 10^3/uL N 1.0-4.8 Abs Monocytes 0.4 10^3/uL N 0-0.8 Abs Eosinophils 0.1 10^3/uL N 0-0.6 Abs Basophils 0.1 10^3/uL N 0-0.2 Abs Nucleated RBC 0.0 10^3/uL Granulocyte % 51.1 % Lymphocyte % 38.6 % Monocyte % 6.9 % Eosinophil % 2.5 % Basophil % 0.9 % Nucleated Red Blood Cells % 0.1 Laboratory 11/26/2018 [facility] TSH (Thyroid 4.14 N 0.34-5.60 test finding [phone] Stimulating Horm) mcIU/mL Lipid Panel 11/26/2018 [facility] Triglycerides 177 mg/dL 6 [phone] Cholesterol 170 mg/dL 2 HDL Cholesterol 51.7 mg/dL 3 LDL Cholesterol 83 mg/dL 4 CMP - Comprehensive 11/26/2018 [facility] Sodium 139 mmol/L N 135-145 Metabolic [phone] Potassium 4.0 mmol/L N 3.5-5.0 Chloride 104 mmol/L N 101-111 Co2 Carbon Dioxide 29 mmol/L N 22-32 Anion Gap 6 mmol/L N 2-11 Glucose 93 mg/dL N 70-100 Blood Urea Nitrogen 20 mg/dL N 6-24 Creatinine 0.93 mg/dL N 0.51-0.95 BUN/Creatinine Ratio 21.5 High 8-20 Calcium 9.5 mg/dL N 8.6-10.3 Total Protein 6.5 g/dL N 6.4-8.9 Albumin 4.4 g/dL N 3.2-5.2 Globulin 2.1 g/dL N 2-4 Albumin/Globulin Ratio 2.1 N 1-3 Total Bilirubin 0.70 mg/dL N 0.2-1.0 Alkaline Phosphatase 49 U/L N 34-104 Alt 19 U/L N 7-52 Ast 17 U/L N 13-39 Egfr Non- 60.3 >60 Egfr 73.0 >60 5 Lipid Profile 09/20/2017 [facility] Triglycerides 154 mg/dL 6, 7 (Trig/Chol/HDL) [phone] Cholesterol 190 mg/dL 8 HDL Cholesterol 51.0 mg/dL 9 LDL Cholesterol 108 mg/dL 10 Comp Metabolic Panel 09/20/2017 [facility] Sodium 141 mmol/L N 139-145 [phone] Potassium 4.2 mmol/L N 3.5-5.0 Chloride 102 mmol/L N 101-111 Co2 Carbon Dioxide 29 mmol/L N 22-32 Anion Gap 10 mmol/L N 2-11 Glucose 96 mg/dL N 70-100 Blood Urea Nitrogen 16 mg/dL N 6-24 Creatinine 1.03 mg/dL High 0.51-0.95 BUN/Creatinine Ratio 15.5 N 8-20 Calcium 9.7 mg/dL N 8.6-10.3 Total Protein 7.2 g/dL N 6.4-8.9 Albumin 4.8 g/dL N 3.2-5.2 Globulin 2.4 g/dL N 2-4 Albumin/Globulin Ratio 2.0 N 1-3 Total Bilirubin 0.80 mg/dL N 0.2-1.0 Alkaline Phosphatase 50 U/L N 34-104 Alt 19 U/L N 7-52 Ast 18 U/L N 13-39 Egfr Non- 53.8 >60 Egfr 69.2 >60 11 CBC Auto Diff 09/20/2017 [facility] White Blood 5.4 10^3/uL N 3.5-10.8 [phone] Count Red Blood Count 5.04 10^6/uL N 4.0-5.4 Hemoglobin 14.7 g/dL N 12.0-16.0 Hematocrit 43 % N 35-47 Mean Corpuscular Volume 86 fL N 80-97 Mean Corpuscular Hemoglobin 29 pg N 27-31 Mean Corpuscular HGB Conc 34 g/dL N 31-36 Red Cell Distribution Width 14 % N 10.5-15 Platelet Count 212 10^3/uL N 150-450 Mean Platelet Volume 8.1 um3 N 7.4-10.4 Abs Neutrophils 3.0 10^3/uL N 1.5-7.7 Abs Lymphocytes 2.0 10^3/uL N 1.0-4.8 Abs Monocytes 0.3 10^3/uL N 0-0.8 Abs Eosinophils 0.1 10^3/uL N 0-0.6 Abs Basophils 0 10^3/uL N 0-0.2 Abs Nucleated RBC 0 10^3/uL Granulocyte % 54.9 % N 38-83 Lymphocyte % 36.5 % N 25-47 Monocyte % 6.5 % N 0-7 Eosinophil % 1.2 % N 0-6 Basophil % 0.9 % N 0-2 Nucleated Red Blood Cells % 0 Laboratory 09/20/2017 [facility] Hepatitis C Nonreactive Nonreactive 12 test finding [phone] Antibody Liver Function 09/20/2017 [facility] Direct 0.10 mg/ dL N 0.03-0.18 Panel [phone] Bilirubin Indirect Bilirubin 0.7 mg/dL N 0.3-1.0 Laboratory 09/20/2017 [facility] TSH (Thyroid 3.48 N 0.34-5.60 13 test finding [phone] Stimulating mcIU/mL Horm) Laboratory 09/20/2017 [facility] Cytology SEE RESULT 14, test finding [phone] BELOW 15 Laboratory 09/23/2016 [facility] Cytology SEE RESULT 16 test finding [phone] BELOW HPV Rna Ww/Reflex Genotype Negative N Negative 17 Comp Metabolic Panel 09/22/2016 [facility] Sodium 137 mmol/L N 133-145 [phone] Potassium 3.9 mmol/L N 3.5-5.0 Chloride 101 mmol/L N 101-111 Co2 Carbon Dioxide 29 mmol/L N 22-32 Anion Gap 7 mmol/L N 2-11 Glucose 86 mg/dL N 70-100 Blood Urea Nitrogen 10 mg/dL N 6-24 Creatinine 0.75 mg/dL N 0.51-0.95 BUN/Creatinine Ratio 13.3 N 8-20 Calcium 9.1 mg/dL N 8.6-10.3 Total Protein 6.8 g/dL N 6.4-8.9 Albumin 4.2 g/dL N 3.2-5.2 Globulin 2.6 g/dL N 2-4 Albumin/Globulin Ratio 1.6 N 1-3 Total Bilirubin 0.60 mg/dL N 0.2-1.0 Alkaline Phosphatase 71 U/L N 34-104 Alt 45 U/L N 7-52 Ast 40 U/L High 13-39 Egfr Non- 77.8 N >60 Egfr 100.1 N >60 18 CBC Auto Diff 09/22/2016 [facility] White Blood 6.9 10^3/uL N 3.5-10.8 [phone] Count Red Blood Count 4.66 10^6/uL N 4.0-5.4 Hemoglobin 12.5 g/dL N 12.0-16.0 Hematocrit 38 % N 35-47 Mean Corpuscular Volume 81 fL N 80-97 Mean Corpuscular Hemoglobin 27 pg N 27-31 Mean Corpuscular HGB Conc 33 g/dL N 31-36 Red Cell Distribution Width 15 % N 10.5-15 Platelet Count 200 10^3/uL N 150-450 Mean Platelet Volume 8 um3 N 7.4-10.4 Abs Neutrophils 4.2 10^3/uL N 1.5-7.7 Abs Lymphocytes 2.0 10^3/uL N 1.0-4.8 Abs Monocytes 0.5 10^3/uL N 0-0.8 Abs Eosinophils 0.1 10^3/uL N 0-0.6 Abs Basophils 0.1 10^3/uL N 0-0.2 Abs Nucleated RBC 0 10^3/uL N Granulocyte % 61.1 % N 38-83 Lymphocyte % 28.6 % N 25-47 Monocyte % 7.7 % N 1-9 Eosinophil % 1.6 % N 0-6 Basophil % 1.0 % N 0-2 Nucleated Red Blood Cells % 0 N Laboratory 09/22/2016 [facility] TSH (Thyroid 8.68 High 0.34-5.60 19 test finding [phone] Stim Horm) mcIU/mL Lipid Profile 09/22/2016 [facility] Triglycerides 180 mg/dL N 20 (Trig/Chol/HD [phone] L) Cholesterol 201 mg/dL N 21 HDL Cholesterol 50.4 mg/dL N 22 LDL Cholesterol 115 mg/dL N 23 CBC No Diff 07/13/2016 [facility] White Blood 7.7 10^ 3/uL N 3.5-10.8 [phone] Count Red Blood Count 5.06 10^6/uL N 4.0-5.4 Hemoglobin 14.7 g/dL N 12.0-16.0 Hematocrit 44 % N 35-47 Mean Corpuscular Volume 86 fL N 80-97 Mean Corpuscular Hemoglobin 29 pg N 27-31 Mean Corpuscular HGB Conc 34 g/dL N 31-36 Red Cell Distribution Width 13 % N 10.5-15 Platelet Count 215 10^3/uL N 150-450 Mean Platelet Volume 8 um3 N 7.4-10.4 Comp Metabolic Panel 07/13/2016 [facility] Sodium 137 mmol/L N 133-145 [phone] Potassium 4.3 mmol/L N 3.5-5.0 Chloride 101 mmol/L N 101-111 Co2 Carbon Dioxide 30 mmol/L N 22-32 Anion Gap 6 mmol/L N 2-11 Glucose 93 mg/dL N 70-100 Blood Urea Nitrogen 14 mg/dL N 6-24 Creatinine 1.05 mg/dL High 0.51-0.95 BUN/Creatinine Ratio 13.3 N 8-20 Calcium 10.0 mg/dL N 8.6-10.3 Total Protein 7.2 g/dL N 6.4-8.9 Albumin 5.0 g/dL N 3.2-5.2 Globulin 2.2 g/dL N 2-4 Albumin/Globulin Ratio 2.3 N 1-3 Total Bilirubin 0.80 mg/dL N 0.2-1.0 Alkaline Phosphatase 46 U/L N 34-104 Alt 22 U/L N 7-52 Ast 19 U/L N 13-39 Egfr Non- 52.8 N >60 Egfr 67.9 N >60 24 Urinalysis Profile 07/13/2016 [facility] Urine Color Yellow N [phone] Urine Appearance Clear N Urine Specific Pe Ell 1.009 Low 1.010-1.030 Urine pH 7.0 N 5-9 Urine Urobilinogen Negative N Negative Urine Ketones Negative N Negative Urine Protein Negative N Negative Urine Leukocytes Negative N Negative Urine Blood Negative N Negative Urine Nitrite Negative N Negative Urine Bilirubin Negative N Negative Urine Glucose Negative N Negative Inr/Protime 07/13/2016 [facility] Inr 0.88 Low 0.89 -1.11 [phone] Laboratory test 07/13/2016 [facility] Partial 28.3 seconds N 26.0-36.3 finding [phone] Thrombo Time PTT Laboratory test 07/13/2016 [facility] Urine SEE RESULT 25 finding [phone] Culture BELOW Type & Screen 07/13/2016 [facility] Patient A Negative N [phone] Blood Type Antibody Screen NEGATIVE N Laboratory test 01/06/2016 [facility] TSH (Thyroid 2.62 mcIU/mL N 0.34-5.60 26 finding [phone] Stim Horm) Comp Metabolic 01/06/2016 [facility] Sodium 138 mmol/ L N 133-145 Panel [phone] Potassium 3.9 mmol/L N 3.5-5.0 Chloride 103 mmol/L N 101-111 Co2 Carbon Dioxide 26 mmol/L N 22-32 Anion Gap 9 mmol/L N 2-11 Glucose 90 mg/dL N 70-100 Blood Urea Nitrogen 12 mg/dL N 6-24 Creatinine 1.02 mg/dL High 0.51-0.95 BUN/Creatinine Ratio 11.8 N 8-20 Calcium 9.4 mg/dL N 8.6-10.3 Total Protein 6.8 g/dL N 6.4-8.9 Albumin 4.5 g/dL N 3.2-5.2 Globulin 2.3 g/dL N 2-4 Albumin/Globulin Ratio 2.0 N 1-3 Total Bilirubin 0.80 mg/dL N 0.2-1.0 Alkaline Phosphatase 47 U/L N 34-104 Alt 20 U/L N 7-52 Ast 18 U/L N 13-39 Egfr Non- 54.7 N >60 Egfr 70.4 N >60 27 Lipid Profile 01/06/2016 [facility] Triglycerides 260 mg/dL N 28 (Trig/Chol/HDL) [phone] Cholesterol 190 mg/dL N 29 HDL Cholesterol 49.2 mg/dL N 30 LDL Cholesterol 89 mg/dL N 31 Urine DIP 04/03/2014 In House Lab Specific Pe Ell 1.005 Low 1.01-1.02 [phone] Urine pH 8 High 5-6 Leukocytes NEG Neg Urine Nitrites NEG Neg Total Protein, Urine NEG Neg Urine Glucose NORM Norm Urine Ketones NEG Neg Urobilinogen NORM Norm Urine Bilirubin NEG Neg Urine Blood NEG Neg HPV High 04/03/2014 [facility] Human Papillomavirus See Comment N 32 Risk [phone] Source HPV High Risk Type 16, PCR Positive N Negative HPV High Risk Type 18, PCR Negative N Negative HPV Other Risk types Negative N Negative 33 Laboratory test 04/03/2014 [facility] Cytology RUN DATE: 34 finding [phone] 04/04/ <SEE NOTE> Laboratory test 03/31/2014 [facility] TSH (Thyroid 3.62 IU/mL N 0.34- 35, 36 finding [phone] Stimulating 5.60 Horm) Hemoglobin A1c 5.5 % N Less than 6.0 37 Lipid Panel 03/31/2014 [facility] Triglycerides 196 mg/dL N 38 [phone] Cholesterol 207 mg/dL N 39 HDL Cholesterol 47.0 mg/dL N 40 LDL Cholesterol 121 mg/dL N 41 CMP - Comprehensive 03/31/2014 [facility] Sodium 137 mmol/L N 133-145 Metabolic [phone] Potassium 4.1 mmol/L N 3.7-5.6 Chloride 103 mmol/L N 101-111 Co2 Carbon Dioxide 28 mmol/L N 22-32 Anion Gap 6 mmol/L N 2-11 Glucose 93 mg/dL N 70-100 Blood Urea Nitrogen 14 mg/dL N 6-24 Creatinine 0.96 mg/dL High 0.51-0.95 BUN/Creatinine Ratio 14.6 N 8-20 Calcium 9.4 mg/dL N 8.6-10.3 Total Protein 6.4 g/dL N 6.4-8.9 Albumin 4.1 g/dL N 3.2-5.2 Globulin 2.3 g/dL N 2-4 Albumin/Globulin Ratio 1.8 N 1-3 Total Bilirubin 0.60 mg/dL N 0.2-1.0 Alkaline Phosphatase 43 U/L N 34-104 Alt 21 U/L N 7-52 Ast 18 U/L N 13-39 Egfr Non- 58.9 N >60 Egfr 75.7 N >60 42 CBC - Complete 03/31/2014 [facility] White Blood 5.2 10^3/uL N 4.8-10.8 Blood Count [phone] Count Red Blood Count 4.59 10^6/uL N 4.0-5.4 Hemoglobin 13.6 g/dL N 12.0-16.0 Hematocrit 39 % N 35-47 Mean Corpuscular Volume 86 fL N 80-97 Mean Corpuscular Hemoglobin 30 pg N 27-31 Mean Corpuscular HGB Conc 35 g/dL N 31-36 Red Cell Distribution Width 13 % N 10.5-15 Platelet Count 188 10^3/uL N 150-450 Mean Platelet Volume 8 um3 N 7.4-10.4 Lipid Panel 01/25/2013 [facility] Triglycerides 224 mg/dL High 40-200 [phone] Cholesterol 207 mg/dL High Less than 200 HDL Cholesterol 45 mg/dL 40-60 43 Cholesterol/HDL Ratio 4.6 Average High 1-4.44 LDL Cholesterol 117.2 High Less Than 100 44 Statin 01/25/2013 [facility] Ast 23 U/L 12-42 45 [phone] Alt 29 U/L 14-54 46 Laboratory test 01/25/2013 [facility] TSH (Thyroid 4.13 0.34-5.60 47 finding [phone] Stimulating miu/mL Horm) Laboratory test 04/04/2012 [facility] TSH (Thyroid 1.06 0.34-5.60 finding [phone] Stimulating MIU/ML Horm) Free T4 0.88 NG/ML 0.61-1.24 Urine DIP 02/15/2012 In House Lab Leukocytes neg Neg (607)- - Urine Nitrites neg Neg Urine pH 7 High 5-6 Total Protein, Urine neg Neg Urine Glucose norm Norm Urine Ketones neg Neg Urobilinogen norm Norm Urine Bilirubin neg Neg Urine Blood neg Neg Specific Pe Ell na Low 1.01-1.02 Laboratory test 02/15/2012 [facility] Cytology ------ 48 finding [phone] <SEE NOTE> CMP - 02/07/2012 [facility] Sodium 140 mmol/L 135 - Comprehensive [phone] Metabolic Potassium 4.3 mmol/L 3.5-5.0 Chloride 104 mmol/L 101-111 Co2 (Carbon Dioxide) 31.0 mmol/L 22-32 Anion Gap 5.0 mmol/L 2-11 49 Glucose 93 mg/dL 70-100 BUN 9 mg/dL 6-24 Creatinine 1.0 mg/dL 0.50-1.40 One Over Creatinine 1.00 BUN/Creatinine Ratio 9.0 8-20 Calcium 9.6 mg/dL 8.1-9.9 Total Protein 6.3 GM/DL 6.2-8.1 Albumin 4.1 GM/DL 3.6-5.4 Globulin 2.2 GM/DL 2-4 Albumin/Globulin Ratio 1.9 1-3 Bilirubin Total 0.5 mg/dL 0.4-1.5 50 Alkaline Phosphatase 48 U/L 30-110 Alt (SGPT) 29 U/L 14-54 Ast (Sgot) 24 U/L 12-42 eGFR Non- 56.7 > 60 eGFR 73.0 > 60 51 Lipid Panel 02/07/2012 [facility] Triglyceride 240 mg /dL High 40-200 [phone] Cholesterol 198 mg/dL Less Than 200 52 High Density Lipoprotein 43 mg/dL 40-60 53 Cholesterol/HDL Ratio 4.60 AVERAGE High 1-4.44 Low Density Lipoprotein 107 mg/dL High Less Than 100 54 Laboratory test 02/07/2012 [facility] Hemoglobin A1c 5.5 % Less Than 55 finding [phone] 6.0 TSH 4.80 MIU/ML 0.34-5.60 Urine DIP 03/15/2010 In House Lab Leukocytes NEG Neg (607)- - Urine Nitrites NEG Neg Urine pH 7 High 5-6 Total Protein, Urine NEG Neg Urine Glucose NORM Norm Urine Ketones NEG Neg Urobilinogen NORM Norm Urine Bilirubin NEG Neg Urine Blood NEG Neg Specific Pe Ell NA Low 1.01-1.02 Laboratory 03/15/2010 [facility] Cytology ----- 56 test finding [phone] <SEE NOTE> Lipid Profile 03/20/2009 [facility] Triglyceride 178 mg/dL 40-2 57 (Trig/Chol/HDL [phone] ) Cholesterol 206 mg/dL High Less Than 200 58 High Density Lipoprotein 48 mg/dL 40-60 59 Cholesterol/HDL Ratio 4.29 AVERAGE 1-4.44 Low Density Lipoprotein 122 mg/dL High Less Than 100 60 Laboratory test 03/20/2009 [facility] Alt (SGPT) 22 U /L 14-54 finding [phone] Ast (Sgot) 20 U/L 12-42 Laboratory test 08/06/2008 [facility] Cytology ------ 61 finding [phone] <SEE NOTE> Urine DIP 08/06/2008 In House Lab Leukocytes trace Neg (607)- - Urine Nitrites neg Neg Urine pH 5 5-6 Total Protein, Urine nl Neg Urine Glucose nl Norm Urine Ketones nl Neg Urobilinogen nl Norm Urine Bilirubin nl Neg Urine Blood nl Neg Specific Pe Ell n/a Low 1.01-1.02 Statin 08/05/2008 [facility] Ast (Sgot) 17 U/L 12- 42 [phone] Alt (SGPT) 20 U/L 14-54 Lipid Profile 08/05/2008 [facility] Triglyceride 193 mg/dL 40-200 (Trig/Chol/HDL) [phone] Cholesterol 191 mg/dL Less Than 200 62 High Density Lipoprotein 49 mg/dL 40-60 63 Cholesterol/HDL Ratio 3.90 AVERAGE 1-4.44 Low Density Lipoprotein 103 mg/dL High Less Than 100 64 Basic Metabolic 08/05/2008 [facility] Sodium 140 mmol /L 135-145 Panel [phone] Potassium 4.4 mmol/L 3.5-5.0 Chloride 104 mmol/L 101-111 Co2 (Carbon Dioxide) 31.0 mmol/L 22-32 Anion Gap 5.0 mmol/L 2-11 65 Glucose 79 mg/dL 70-100 66 BUN 10 mg/dL 6-24 Creatinine 1.00 mg/dL 0.50-1.40 One Over Creatinine 1.00 BUN/Creatinine Ratio 10.0 8-20 Calcium 9.5 mg/dL 8.1-9.9 67 Laboratory test 08/05/2008 [facility] TSH 1.83 MIU/ ML 0.34-5.60 finding [phone] CBC With 07/07/2008 [facility] White Blood 6.7 CUMM 4.8-10.8 68 Electronic Diff [phone] Count Red Cell Count 4.56 CUMM 4.2-5.4 Hemoglobin 13.8 g/dL 12.0-16.0 Hematocrit 39 % 35-47 Mean Corpuscular Volume 85 um3 79-97 Mean Corpuscular Hemoglob 30 pg 27-31 Mean Corpuscular HGB Cone 36 g/dL 32-36 Redcell Distribution WDTH 13 % 10.5-15 Platelet Count 201 CUMM 150-450 Mean Platelet Volume 7.0 um3 Low 7.4-10.4 Gran % 62.4 % 38-83 Lymph % 29.7 % 20-45 Mononuclear % 6.1 % 1-9 Eosinophil % 1.5 % 0-6 Basophil % 0.3 % 0-2 Abs Lymphs 2.0 1.0-4.8 Abs Mononuclear 0.4 0-0.8 Absolute Neutrophil Count 4.2 1.5-7.7 Abs Eosinophils 0.1 0-0.6 Abs Basophils 0 0-0.2 Lipid Profile 03/27/2008 [facility] Triglyceride 100 mg/dL 40-200 69 (Trig/Chol/HDL) [phone] Cholesterol 151 mg/dL Less Than 200 70 High Density Lipoprotein 44 mg/dL 40-60 71 Cholesterol/HDL Ratio 3.43 AVERAGE 1-4.44 Low Density Lipoprotein 87 mg/dL Less Than 100 72 Laboratory test 03/27/2008 [facility] Alt (SGPT) 23 U /L 14-54 finding [phone] Ast (Sgot) 22 U/L 12-42 Laboratory test 08/29/2007 [facility] Alt (SGPT) 31 U /L 14-54 finding [phone] Ast (Sgot) 26 U/L 12-42 Lipid Profile 08/29/2007 [facility] Cholesterol/HDL 4.97 High 1-4.44 (Trig/Chol/HDL) [phone] Ratio AVERAGE Cholesterol 189 mg/dL Less Than 200 73 Triglyceride 171 mg/dL 40-200 High Density Lipoprotein 38 mg/dL Low 40-60 74 Low Density Lipoprotein 117 mg/dL High Less Than 100 75 Surgical 06/20/2007 [facility] Surgical --- 76 Pathology [phone] Pathology <SEE NOTE> Statin 06/01/2007 [facility] Ast (Sgot) 24 U/L 12- 4 [phone] Alt (SGPT) 30 U/L 14-54 Lipid Profile 06/01/2007 [facility] Cholesterol/HDL 4.77 High 1-4.44 (Trig/Chol/HDL) [phone] Ratio AVERAGE Cholesterol 229 mg/dL High Less Than 200 77 Triglyceride 238 mg/dL High 40-200 High Density Lipoprotein 48 mg/dL 40-60 Low Density Lipoprotein 133 mg/dL High Less Than 100 78 Comp Metabolic 04/17/2007 [facility] One Over Creatinine 0.90 Panel [phone] Anion Gap 7.0 mmol/L 2-11 79 Albumin/Globulin Ratio 1.4 1-3 Albumin 4.1 GM/DL 3.6-5.4 Alkaline Phosphatase 52 U/L 30-110 Alt (SGPT) 24 U/L 14-54 Ast (Sgot) 26 U/L 12-42 BUN 13 mg/dL 6-24 Calcium 9.1 mg/dL 8.7-10.2 Chloride 98 mmol/L Low 101-111 Co2 (Carbon Dioxide) 28.0 mmol/L 22-32 Globulin 3.0 GM/DL 2-4 Glucose 87 mg/dL 70-105 Potassium 4.6 mmol/L 3.5-5.0 Sodium 133 mmol/L Low 135-145 Bilirubin Total 1.0 mg/dL 0.4-1.5 Total Protein 7.1 GM/DL 6.2-8.1 BUN/Creatinine Ratio 11.8 8-20 Creatinine 1.1 mg/dL 0.5-1.4 Lipid Profile 04/17/2007 [facility] Cholesterol/HDL 5.13 High 1-4.44 (Trig/Chol/HDL) [phone] Ratio AVERAGE Cholesterol 246 mg/dL High Less Than 200 80 Triglyceride 239 mg/dL High 40-200 High Density Lipoprotein 48 mg/dL 40-60 Low Density Lipoprotein 150 mg/dL High Less Than 100 81 Laboratory 03/26/2007 [facility] Cytology ----- 82 test finding [phone] <SEE NOTE> Laboratory 02/22/2007 [facility] TSH 2.65 MIU/ML 0.34-5 test finding [phone] .60 Urine DIP 12/21/2005 In House Lab Leukocytes neg Neg (607)- - Urine Nitrites neg Neg Urine pH 5 5-6 Total Protein, Urine neg Neg Urine Glucose norm Norm Urine Ketones neg Neg Urobilinogen norm' Norm Urine Bilirubin neg Neg Urine Blood neg Neg Specific Pe Ell n/a Low 1.01-1.02 Laboratory 12/21/2005 [facility] Cytology ----- 83 test finding [phone] <SEE NOTE> CBC With 08/25/2005 [facility] White Blood 4.5 CUMM Low 4.8 Electronic [phone] Count -10 Diff .8 Abs Basophils 0 0-0.2 Abs Eosinophils 0 0-0.6 Absolute Neutrophil Count 2.4 1.5-7.7 Abs Lymphs 1.7 1.0-4.8 Abs Mononuclear 0.4 0-0.8 Basophil % 0 % 0-2 Hematocrit 41 % 35-47 Hemoglobin 13.9 g/dL 12.0-16.0 Eosinophil % 0.7 % 0-6 Gran % 53.5 % 38-83 Lymph % 37.9 % 20-45 Mean Corpuscular HGB Cone 34 g/dL 32-36 Mean Corpuscular Hemoglob 29 pg 27-31 Mean Corpuscular Volume 86 um3 79-97 Mean Platelet Volume 7.5 um3 7.4-10.4 Mononuclear % 7.9 % 1-9 Platelet Count 232 CUMM 150-450 Red Cell Count 4.78 CUMM 4.2-5.4 Redcell Distribution WDTH 12 % 10.5-15 Comp Metabolic 08/25/2005 [facility] One Over Creatinine 1.00 Panel [phone] Anion Gap 6.1 mmol/L 2-11 84 Albumin/Globulin Ratio 1.6 1-3 Albumin 4.1 GM/DL 3.6-5.4 Alkaline Phosphatase 50 U/L 30-110 Alt (SGPT) 23 U/L 14-54 Ast (Sgot) 24 U/L 12-42 BUN 11 mg/dL 6-24 Calcium 9.5 mg/dL 8.7-10.2 Chloride 100.8 mmol/L Low 101-111 Co2 (Carbon Dioxide) 26.5 mmol/L 22-32 Globulin 2.5 GM/DL 2-4 Glucose 84 mg/dL 70-105 Potassium 4.0 mmol/L 3.5-5.0 Sodium 133.4 mmol/L Low 135-145 Bilirubin Total 1.2 mg/dL 0.4-1.5 Total Protein 6.6 GM/DL 6.2-8.1 BUN/Creatinine Ratio 11.0 8-20 Creatinine 1.0 mg/dL 0.5-1.4 Lipid Profile 08/25/2005 [facility] Cholesterol 230 mg/dL High Less 85 (Trig/Chol/HDL) [phone] Than 200 Triglyceride 173 mg/dL 40-200 High Density Lipoprotein 43 mg/dL 40-60 Low Density Lipoprotein 152 mg/dL High Less Than 100 86 Cholesterol/HDL Ratio 5.35 AVERAGE High 1-4.44 Laboratory test 08/25/2005 [facility] TSH 1.73 MIU/ ML 0.34-5.60 finding [phone] Comp Metabolic 06/23/2005 [facility] One Over 1.00 Panel [phone] Creatinine Anion Gap 7.0 mmol/L 2-11 87 Albumin/Globulin Ratio 1.7 1-3 Albumin 4.2 GM/DL 3.6-5.4 Alkaline Phosphatase 62 U/L 30-110 Alt (SGPT) 27 U/L 14-54 Ast (Sgot) 21 U/L 12-42 BUN 10 mg/dL 6-24 Calcium 9.7 mg/dL 8.7-10.2 Chloride 101 mmol/L 101-111 Co2 (Carbon Dioxide) 31.0 mmol/L 22-32 Globulin 2.5 GM/DL 2-4 Glucose 92 mg/dL 70-105 Potassium 4.2 mmol/L 3.5-5.0 Sodium 139 mmol/L 135-145 Bilirubin Total 0.7 mg/dL 0.4-1.5 Total Protein 6.7 GM/DL 6.2-8.1 BUN/Creatinine Ratio 10.0 8-20 Creatinine 1.0 mg/dL 0.5-1.4 Lipid Profile 06/23/2005 [facility] Cholesterol 281 mg/dL High Less 88 (Trig/Chol/HDL) [phone] Than 200 Triglyceride 214 mg/dL High 40-200 High Density Lipoprotein 49 mg/dL 40-60 Low Density Lipoprotein 189 mg/dL High Less Than 100 89 Cholesterol/HDL Ratio 5.73 AVERAGE High 1-4.44 Laboratory test 06/23/2005 [facility] TSH 7.07 MIU/ ML High 0.34-5.60 finding [phone] CBC With 06/23/2005 [facility] White 5.2 CUMM 4.8- 10.8 Electronic Diff [phone] Blood Count Abs Basophils 0 0-0.2 Abs Eosinophils 0.1 0-0.6 Absolute Neutrophil Count 2.8 1.5-7.7 Abs Lymphs 1.9 1.0-4.8 Abs Mononuclear 0.4 0-0.8 Basophil % 0.9 % 0-2 Hematocrit 42 % 35-47 Hemoglobin 14.2 g/dL 12.0-16.0 Eosinophil % 2.2 % 0-6 Gran % 52.4 % 38-83 Lymph % 36.3 % 20-45 Mean Corpuscular HGB Cone 34 g/dL 32-36 Mean Corpuscular Hemoglob 29 pg 27-31 Mean Corpuscular Volume 86 um3 79-97 Mean Platelet Volume 7.6 um3 7.4-10.4 Mononuclear % 8.2 % 1-9 Platelet Count 244 CUMM 150-450 Red Cell Count 4.92 CUMM 4.2-5.4 Redcell Distribution WDTH 12 % 10.5-15 Laboratory test 03/01/2004 [facility] TSH 5.31 MIU/ ML 0.34-5.60 finding [phone] Free Thyroxine 0.79 ng/dL 0.58-1.64 Thyroxine 4.9 g/dL Low 5-12 Thyroid Panel 01/26/2004 [facility] Thyroxine 5.2 g /dL 5-12 [phone] Free Thyroxine 0.73 ng/dL 0.58-1.64 Laboratory test 01/26/2004 [facility] TSH 5.71 MIU/ ML High 0.34-5.60 finding [phone] Urine DIP 02/24/2003 In House Lab Leukocytes NEG Neg (607)- - Urine Nitrites NEG Neg Urine pH 5 5-6 Total Protein, Urine NL Neg Urine Glucose NL Norm Urine Ketones NL Neg Urobolinogen NL Norm Urine Bilirubin NL Neg Urine Blood NL Neg Specific Pe Ell N/A Low 1.01-1.02 Laboratory test 02/24/2003 [facility] Thin Layer Pap REC'D-SEE IMAGE finding [phone] W/Reflex To HPV For ASCUS CBC 12/27/2002 [facility] WBC 5.1 x10*3 4.3 - [phone] 10.9 RBC 4.23 x10*6 3.8 - 5.3 Hemoglobin 12.4 g/dL 11.8 - 15.8 Hematocrit 36.8 % 35.0 - 47.0 MCV 87.0 fl 82.0 - 98.0 MCH 29.5 pg 27.5 - 33.5 MCHC 33.8 g/dL 32.0 - 36.0 RDW 13.2 % 11.5 - 14.5 Platelet Count 141 x10*3 130.0 - 400.0 MPV 8.4 fl 6.5 - 10.5 Segmented Neutrophils 51.4 % 44.0 - 74.0 Lymphocytes 39.1 % 15.0 - 45.0 Monocytes 5.3 % 2.0 - 13.0 Eosinophils 3.7 % 0.0 - 6.0 Basophils 0.5 % 0.0 - 2.0 Neutrophil Absolute 2.6 x10*3 1.4 - 7.0 Lymphocytes Absolute 2.0 x10*3 1.0 - 3.4 Monocyte Absolute 0.3 x10*3 0.2 - 1.0 Eosinophil Absolute 0.2 x10*3 0.0 - 0.5 Basophil Absolute 0.0 x10*3 0.0 - 0.2 Comprehensive 12/27/2002 [facility] Glucose 78 mg/dL 61.0 - 110.0 Metabolic [phone] BUN 11 mg/dL 4.0 - 18.0 Creatinine, Serum 0.9 mg/dL 0.5 - 1.2 Sodium 140 mmol/L 136.0 - 145.0 Potassium 4.4 mmol/L 3.5 - 5.3 90 Chloride 106 mmol/L 98.0 - 107.0 Carbon Dioxide 26 mmol/L 23.0 - 33.0 Albumin 3.8 g/dL 3.6 - 4.5 Protein, Total 6.7 g/dL 6.2 - 8.0 Calcium 9.3 mg/dL 8.4 - 10.2 Alkaline Phosphatase 60 U/L 42.0 - 127.0 Sgot (Ast) 27 U/L 9.0 - 37.0 SGPT (Alt) 26 U/L 7.0 - 42.0 Bilirubin, Total 0.80 mg/dL 0.2 - 1.3 Laboratory test 12/27/2002 [facility] TSH (Thyrotropin) 2.20 uIU/ml 0.49 - finding [phone] 4.67 Xray 11/29/2001 [facility] [place] Radiology RECEIVED EXPRESS CHECK-IN# [phone] - Mammograpy-Screening RECEIVED Urine DIP 11/22/2001 In House Lab Leukocytes NEG Neg ([phone])- - Urine Nitrites NEG Neg Urine pH 5 5-6 Total Protein, Urine NEG Neg Urine Glucose NORM Norm Urine Ketones NEG Neg Urobolinogen NORM Norm Urine Bilirubin NEG Neg Urine Blood NEG Neg Specific Pe Ell NA Low 1.01-1.02 Laboratory 11/22/2001 [facility] Conventional PREDOM OF Hyperkeratosis 91 test finding [phone] Pap Smear BACTER 1 Desirable: <150 Borderline High: 150-199 High: 200-499 Very High: >500 2 Desirable: <200 Borderline High: 200-239 High: >239 3 Low: <40 Desirable: 40-60 High: >60 4 Desirable: <100 Near Optimal: 100-129 Borderline High: 130-159 High: 160-189 Very High: >189 5 Because ethnic data is not always readily available, this report includes an eGFR for both -Americans and non- Americans. The National Kidney Disease Education Program (NKDEP) does not endorse the use of the MDRD equation for patients that are not between the ages of 18 and 70, are , have extremes of body size, muscle mass, or nutritional status, or are non- or non-. According to the National Kidney Foundation, irrespective of diagnosis, the stage of the disease is based on the level of kidney function: Stage Description GFR(mL/min/1.73 m(2)) 1 Kidney damage with normal or decreased GFR 90 2 Kidney damage with mild decrease in GFR 60-89 3 Moderate decrease in GFR 30-59 4 Severe decrease in GFR 15-29 5 Kidney failure <15 (or dialysis) 6 [id number] 7 Desirable: <150 Borderline High: 150-199 High: 200-499 Very High: >500 8 Desirable: <200 Borderline High: 200-239 High: >239 9 Low: <40 Desirable: 40-60 High: >60 10 Desirable: <100 Near Optimal: 100-129 Borderline High: 130-159 High: 160-189 Very High: >189 11 Because ethnic data is not always readily available, this report includes an eGFR for both -Americans and non- Americans. The National Kidney Disease Education Program (NKDEP) does not endorse the use of the MDRD equation for patients that are not between the ages of 18 and 70, are , have extremes of body size, muscle mass, or nutritional status, or are non- or non-. According to the National Kidney Foundation, irrespective of diagnosis, the stage of the disease is based on the level of kidney function: Stage Description GFR(mL/min/1.73 m(2)) 1 Kidney damage with normal or decreased GFR 90 2 Kidney damage with mild decrease in GFR 60-89 3 Moderate decrease in GFR 30-59 4 Severe decrease in GFR 15-29 5 Kidney failure <15 (or dialysis) 12 [id number] 13 [id number] 14 [id number] 15 SEE RESULT BELOW Name: MADELEINE SWAIN : [address]: Charlotte Naranjo MD Acct: [id number] Unit: [id number] AGE: 67 Location: [facility] Re09/20/17 SEX: F Status: REG REF SPEC: [id number] LIDA: 09/20/17-[address] [facility] [address]: Charlotte Naranjo MD REQ: [id number] RECD: 09/20/17 STATUS: SOUT _ ORDERED: TP IMAGE ANAL, HPV/Thin Prep, HPV 16/18 GENE COMMENTS: [id number] Negative for Intraepithelial lesion or Malignancy A. Ectocervical/Endocervical Specimen Adequacy: Satisfactory of evaluation Transformation zone component identified Patient Information: HPV: High risk HPV RNA testing regardless of pap results. Actual Specimen Date: 09/20/17 LMP If Unknown: unknown Date of Last Specimen: 09/23/16 Date Time Test Result Flag (u) Normal Range 09/20/17 1025 @ HPV RNA Negative Negative @ @ The high-risk HPV types detected by the assay include: 16, @ 18, 31, 33, 35, 39, 45, 51, 52, 56, 58, 59, 66, and 68. Signed (signature on file) SEYMOUR Aguirre (ASCP) 09/21 1525 This Pap test was evaluated with the assistance of the ThinPrep Test Imaging System. Due to cytologic findings at the drywall taper helper microscope, comprehensive manual rescreening by a Warp Drawer may be required. The Pap Smear is a screening test designed to aid in the detection of premalignant and malignant conditions of the uterine cervix. It is not a diagnostic procedure and should not be used as the sole means of detecting cervical cancer. Both false- positive and false- negative reports do occur. Depending on your risk status, a Pap smear should be obtained and evaluated every 1-3 years. END OF REPORT DEPARTMENT OF PATHOLOGY, [address] [place] [address] Yinka Gil M.D. Director [facility] # [id number] 16 SEE RESULT BELOW Name: MADELEINE SWAIN : [address]: Charlotte Naranjo MD Acct: [id number] Unit: [id number] AGE: 66 Location: [facility] Re09/23/16 SEX: F Status: REG REF SPEC: [id number] LIDA: 09/23/16-[address] [facility] [address]: Charlotte Naranjo MD REQ: [id number] RECD: 09/23/16-1251 STATUS: SOUT _ ORDERED: IMAGE ANALYSIS, HPV/Thin Prep, HPV 16/18 GENE COMMENTS: [id number] FINAL DIAGNOSIS Negative for Intraepithelial lesion or Malignancy A. Ectocervical/Endocervical Specimen Adequacy: Satisfactory of evaluation Transformation zone component cannot be definitely identified due to presence of atrophy or other hormonal changes Patient Information: HPV: High risk HPV RNA testing regardless of pap results. HPV 16/18 Genotype Reflex Actual Specimen Date: 09/23/16 Date of Last Specimen: 04/03/14 Post Menopausal?: Y Date Time Test Result Flag (u) Normal Range 09/23/161141 HPV RNA RFLX GE Negative Negative The high-risk HPV types detected by the assay include: 16, 18, 31, 33, 35, 39, 45, 51, 52, 56, 58, 59, 66, and 68. Signed (signature on file) SEYMOUR Aguirre (ASCP) 09/26 1294 This Pap test was evaluated with the assistance of the [employer] Test Imaging System. Due to cytologic findings at the drywall taper helper microscope, comprehensive manual rescreening by a Warp Drawer may be required. The Pap Smear is a screening test designed to aid in the detection of premalignant and malignant conditions of the uterine cervix. It is not a diagnostic procedure and should not be used as the sole means of detecting cervical cancer. Both false- positive and false- negative reports do occur. Depending on your risk status, a Pap smear should be obtained and evaluated every 1-3 years. END OF REPORT * ML=Testing performed at Main Lab DEPARTMENT OF PATHOLOGY, [address] [place] [address] Yinka Gil M.D. Director [facility] # [id number] 17 The high-risk HPV types detected by the assay include: 16, 18, 31, 33, 35, 39, 45, 51, 52, 56, 58, 59, 66, and 68. 18 Because ethnic data is not always readily available, this report includes an eGFR for both -Americans and non- Americans. The National Kidney Disease Education Program (NKDEP) does not endorse the use of the MDRD equation for patients that are not between the ages of 18 and 70, are , have extremes of body size, muscle mass, or nutritional status, or are non- or non-. According to the National Kidney Foundation, irrespective of diagnosis, the stage of the disease is based on the level of kidney function: Stage Description GFR(mL/min/1.73 m(2)) 1 Kidney damage with normal or decreased GFR 90 2 Kidney damage with mild decrease in GFR 60-89 3 Moderate decrease in GFR 30-59 4 Severe decrease in GFR 15-29 5 Kidney failure <15 (or dialysis) 19 FASTING 10 HOUR 20 Desirable <150 Borderline high 150-199 High 200-499 Very High >500 21 Desirable <200 Borderline high 200-239 High >239 22 Low <40 Desirable: 40-60 High: >60 23 Desirable: <100 mg/dL Near Optimal: 100-129 mg/dL Borderline High: 130-159 mg/dL High: 160-189 mg/dL Very High: >189 mg/dL 24 Because ethnic data is not always readily available, this report includes an eGFR for both -Americans and non- Americans. The National Kidney Disease Education Program (NKDEP) does not endorse the use of the MDRD equation for patients that are not between the ages of 18 and 70, are , have extremes of body size, muscle mass, or nutritional status, or are non- or non-. According to the National Kidney Foundation, irrespective of diagnosis, the stage of the disease is based on the level of kidney function: Stage Description GFR(mL/min/1.73 m(2)) 1 Kidney damage with normal or decreased GFR 90 2 Kidney damage with mild decrease in GFR 60-89 3 Moderate decrease in GFR 30-59 4 Severe decrease in GFR 15-29 5 Kidney failure <15 (or dialysis) 25 SEE RESULT BELOW Name: MADELEINE SWAIN : [address]: Brittany Chamberlain MD Acct: [id number] Unit: [id number] AGE: 66 Location: [facility] Re07/13/16 SEX: F Status: REG REF SPEC: [id number] LIDA: 07/13/16-[address] [facility] [address]: Brittany Chamberlain MD REQ: [id number] RECD: 07/13/16 STATUS: DIPTI SAINI DR: Charlotte Naranjo MD _ SOURCE: URINE SPDESC: ORDERED: Urine Culture QUERIES: Urine Source: Clean Catch Procedure Result Reported Site Urine Culture Final 07/14/16- 1309 ML No Growth (<1,000 CFU/mL) * ML - MAIN LAB (PSC1) . END OF REPORT * ML=Testing performed at Main Lab DEPARTMENT OF PATHOLOGY, [address] [place] [address] Yinka Gil M.D. Director [facility] # [id number] 26 [id number] 27 Because ethnic data is not always readily available, this report includes an eGFR for both -Americans and non- Americans. The National Kidney Disease Education Program (NKDEP) does not endorse the use of the MDRD equation for patients that are not between the ages of 18 and 70, are , have extremes of body size, muscle mass, or nutritional status, or are non- or non-. According to the National Kidney Foundation, irrespective of diagnosis, the stage of the disease is based on the level of kidney function: Stage Description GFR(mL/min/1.73 m(2)) 1 Kidney damage with normal or decreased GFR 90 2 Kidney damage with mild decrease in GFR 60-89 3 Moderate decrease in GFR 30-59 4 Severe decrease in GFR 15-29 5 Kidney failure <15 (or dialysis) 28 Desirable <150 Borderline high 150-199 High 200-499 Very High >500 29 Desirable <200 Borderline high 200-239 High >239 30 Low <40 Desirable: 40-60 High: >60 31 Desirable: <100 mg/dL Near Optimal: 100-129 mg/dL Borderline High: 130-159 mg/dL High: 160-189 mg/dL Very High: >189 mg/dL 32 RESULT: Ectocervical/Endocervical 33 The following Other High Risk HPV types were not detected: 31, 33, 35, 39, 45, 51, 52, 56, 58, 59, 66, and 68 Test Performed by: [place] [address] Castings Drafter: Jose Zuluaga M.D. 34 RUN DATE: 04/04/14 [facility] LAB LIVE PAGE 1 RUN TIME: 4[address] [place], [place] [address] Specimen Inquiry Name: MADELEINE SWAIN : [address]: Naty Meredith NP Acct: [id number] Unit: [id number] AGE: 64 Location: [facility] Re04/03/14 SEX: F Status: REG REF SPEC: [id number] LIDA: 04/03/14-[address] [facility] [address]: Naty Meredith NP REQ: [id number] RECD: 04/03/14 STATUS: SOUT _ ORDERED: IMAGE ANALYSIS, HPV/Thin Prep FINAL DIAGNOSIS Negative for Intraepithelial lesion or Malignancy COMMENTS: Specimen sent to [facility] in [place], [place] on 04/04/14 by [id number] at 1034. Results will be reported separately. A. Ectocervical/Endocervical Specimen Adequacy: Satisfactory of evaluation Transformation zone component cannot be definitely identified due to presence of atrophy or other hormonal changes No menstrual history given Patient Information: HPV: High risk HPV DNA testing regardless of pap results. Actual Specimen Date: 04/03/14 LMP If Unknown: Last Menstrual Period Not Given. Date of Last Specimen: 02/15/12 Signed (signature on file) SEYMOUR Reeves (ASCP) 04/04/14 1046 This Pap test was evaluated with the assistance of the ThinPrep Test Imaging System. Due to cytologic findings at the drywall taper helper microscope, comprehensive manual rescreening by a Warp Drawer may be required. The Pap Smear is a screening test designed to aid in the detection of premalignant and malignant conditions of the uterine cervix. It is not a diagnostic procedure and should not be used as the sole means of detecting cervical cancer. Both false- positive and false- negative reports do occur. Depending on your risk status, a Pap smear shoudl be obtained and evaluated every 1-3 years. END OF REPORT * ML=Testing performed at Main Lab DEPARTMENT OF PATHOLOGY, [address] [place] [address] Yinka Gil M.D. Director [facility] # [id number] 35 PT IS FASTING 36 PT IS FASTING 37 Therapeutic target for the treatment of diabetes Mellitus patients is <7% HBA1C, and in selective patients <6.0%.Please refer to [place] Diabetes Association Diabetic care guidelines for further information. 38 Desirable <150 Borderline high 150-199 High 200-499 Very High >500 39 Desirable <200 Borderline high 200-239 High >239 40 Low <40 Desirable: 40-60 High: >60 41 Desirable <100 Near Optimal 100-129 Borderline high 130-159 High 160-189 Very High >189 42 Because ethnic data is not always readily available, this report includes an eGFR for both -Americans and non- Americans. The National Kidney Disease Education Program (NKDEP) does not endorse the use of the MDRD equation for patients that are not between the ages of 18 and 70, are , have extremes of body size, muscle mass, or nutritional status, or are non- or non-. According to the National Kidney Foundation, irrespective of diagnosis, the stage of the disease is based on the level of kidney function: Stage Description GFR(mL/min/1.73 m(2)) 1 Kidney damage with normal or decreased GFR 90 2 Kidney damage with mild decrease in GFR 60-89 3 Moderate decrease in GFR 30-59 4 Severe decrease in GFR 15-29 5 Kidney failure <15 (or dialysis) 43 HDL Interpretation: Undesirable: High Risk: Less than 40 mg/dL Desirable: Low Risk: Greater than 60 mg/dL 44 LDL Interpretation: Low Risk Optimal Level: LDL Less than 100 mg/dL Near or Above Optimal: LDL 100-129 mg/dL Borderline High Risk: LDL 130-159 mg/dL High Risk: LDL 160-189 mg/dL Very High Risk: LDL Greater than 189 mg/dL 45 PT IS FASTING 46 PT IS FASTING 47 PT IS FASTING 48 ---- RUN DATE: 02/16/12 [facility] NMI LIVE PAGE 1 RUN TIME: 1141 Specimen Inquiry RUN USER: INTERFACE -- Name: MADELEINE SWAIN Nickie Status: REG REF Re02/15/12 Age/Sex: 61/F Unit#: [id number] Location: [facility] : 54 -- Specimen: [id number] SOUT Spec Date:02/15/[address]: Simona white MD Spec Type: CYTOLOGY Received:02/15/12 Copies to: SOURCE ECTOCERVICAL/ENDOCERVICAL Thin Prep with Reflex HPV Test PATIENT INFORMATION ACTUAL COLLECTION DATE: 02/15/12 POST MENOPAUSAL? Yes DATE OF PRIOR SPECIMEN: 03/15/10 ADEQUACY OF SPECIMEN Satisfactory for evaluation * Transformation zone component cannot be definitely identified due to prese nce * of atrophy or other hormonal changes. * DIAGNOSIS NEGATIVE FOR INTRAEPITHELIAL LESION OR MALIGNANCY * This Pap test was evaluated with the assistance of the ThinPrep Pap Test Imaging System. The Pap Smear is a screening test designed to aid in the detection of premalign ant and malignant conditions of the uterine cervix. It is not a diagnostic procedure a nd should not be used as the sole means of detecting cervical cancer. Both false- positiv e and false-negative reports do occur. Depending on your risk status, a Pap smear leda uld be obtained and evaluated every one to three years. Final Interpretation electronically signed by: Sierra TERRY([facility]) 02/16/12 114 1 -- -- DEPARTMENT OF PATHOLOGY, [address] [place] [address] [facility] Permit #[id number] Yinka Gil M.D. Director Erika Dominguez M.D. Harness Brusher Dir zeyad -- 49 Anion gap measurement may be of limited value in the presence of any alkalosis, especially in a combined acid base disorder. . 50 A metabolite of Naproxen, O-desmethylnaproxen, has been shown to interfere with the Jendrassik-Bisi method for measuring total bilirubin. Samples from patients who have taken Naproxen have shown spurious elevation in total bilirubin levels. 51 Because ethnic data is not always readily available, this report includes an eGFR for both -Americans and non- Americans. The National Kidney Disease Education Program (NKDEP) does not endorse the use of the MDRD equation for patients that are not between the ages of 18 and 70, are , have extremes of body size, muscle mass, or nutritional status, or are non- or non-. According to the National Kidney Foundation, irrespective of diagnosis, the stage of the disease is based on the level of kidney function: Stage Description GFR(mL/min/1.73 m(2)) 1 Kidney damage with normal or decreased GFR 90 2 Kidney damage with mild decrease in GFR 60-89 3 Moderate decrease in GFR 30-59 4 Severe decrease in GFR 15-29 5 Kidney failure <15 (or dialysis) 52 CHOLESTEROL INTERPRETATION: Desirable: Less than 200 MG/DL Borderline-High Risk: 200-239 MG/DL High-Risk: 240 MG/DL and over 53 HDL INTERPRETATION: Undesirable: High Risk: Less than 40 MG/DL Desirable: Low Risk: Greater than 60 MG/DL 54 LDL INTERPRETATION: Low Risk Optimal Level: LDL Less than 100 MG/DL Near or Above Optimal: LDL 100-129 MG/DL Borderline High Risk: LDL 130-159 MG/DL High Risk: LDL 160-189 MG/DL Very High Risk: LDL Greater than 189 MG/DL 55 THERAPEUTIC TARGET FOR THE TREATMENT OF DIABETES MELLITUS PATIENTS IS <7% HBA1C, AND IN SELECTIVE PATIENTS <6.0%. PLEASE REFER TO [place] [employer]ATION DIABETIC CARE GUIDELINES FOR FURTHER INFORMATION. 56 ---- RUN DATE: 03/16/10 [facility] NMI LIVE PAGE 1 RUN TIME: 1014 Specimen Inquiry RUN USER: INTERFACE -- Name: MADELEINE SWAIN Status: REG REF Re03/15/10 Age/Sex: 59/F Unit#: [id number] Location: [facility] : [birth year] -- Specimen: [id number] SOUT Spec Date: 03/15/[address]: Simona mueller MD Spec Type: CYTOLOGY Received: 03/16/10-08 Copies to: SOURCE ECTOCERVICAL/ENDOCERVICAL Thin Prep with Reflex HPV Test PATIENT INFORMATION ACTUAL COLLECTION DATE: 03/15/10 POST MENOPAUSAL? Yes DATE OF PRIOR SPECIMEN: 08/06/08 ADEQUACY OF SPECIMEN Satisfactory for evaluation * Transformation zone component cannot be definitely identified due to prese nce * of atrophy or other hormonal changes. * DIAGNOSIS NEGATIVE FOR INTRAEPITHELIAL LESION OR MALIGNANCY * This Pap test was evaluated with the assistance of the ThinPrep Pap Test Imaging System. The Pap Smear is a screening test designed to aid in the detection of premalign ant and malignant conditions of the uterine cervix. It is not a diagnostic procedure a nd should not be used as the sole means of detecting cervical cancer. Both false- positiv e and false-negative reports do occur. Depending on your risk status, a Pap smear leda uld be obtained and evaluated every one to three years. Final Interpretation electronically signed by: Sierra TERRY([facility]) 03/16/10 101 4 -- -- DEPARTMENT OF PATHOLOGY, [address] [place] [address] [facility] Permit #[id number] Yinka Gil M.D. Director Erika Dominguez M.D. Harness Brusher Dir zeyad -- 59 FASTING 58 CHOLESTEROL INTERPRETATION: Desirable: Less than 200 MG/DL Borderline-High Risk: 200-239 MG/DL High-Risk: 240 MG/DL and over 59 HDL INTERPRETATION: Undesirable: High Risk: Less than 40 MG/DL Desirable: Low Risk: Greater than 60 MG/DL 60 LDL INTERPRETATION: Low Risk Optimal Level: LDL Less than 100 MG/DL Near or Above Optimal: LDL 100-129 MG/DL Borderline High Risk: LDL 130-159 MG/DL High Risk: LDL 160-189 MG/DL Very High Risk: LDL Greater than 189 MG/DL 61 ---- RUN DATE: 08/07/08 [facility] NMI LIVE PAGE 1 RUN TIME: 1235 Specimen Inquiry RUN USER: INTERFACE -- Name: ADRIANAMADELEINE M Status: REG REF Re08/06/08 Age/Sex: 58/F Unit#: [id number] Location: [facility] : 54 -- Specimen: [id number] SOUT Spec Date: 08/06/[address]: Simona mueller MD Spec Type: CYTOLOGY Received: 08/07/08-935 Copies to: SOURCE ECTOCERVICAL/ENDOCERVICAL Thin Prep with Reflex HPV Test PATIENT INFORMATION ACTUAL COLLECTION DATE: 08/06/08 POST MENOPAUSAL? Yes DATE OF PRIOR SPECIMEN: 03/26/07 ADEQUACY OF SPECIMEN Satisfactory for evaluation * Transformation zone component cannot be definitely identified due to prese nce * of atrophy or other hormonal changes. * Predominance of white blood cells * DIAGNOSIS NEGATIVE FOR INTRAEPITHELIAL LESION OR MALIGNANCY * This Pap test was evaluated with the assistance of the [employer] Pap Test Imaging System. The Pap Smear is a screening test designed to aid in the detection of premalign ant and malignant conditions of the uterine cervix. It is not a diagnostic procedure a nd should not be used as the sole means of detecting cervical cancer. Both false- positiv e and false-negative reports do occur. Depending on your risk status, a Pap smear leda uld be obtained and evaluated every one to three years. Final Interpretation electronically signed by: Sierra TERRY(ASCP) 08/07/08 123 4 -- -- DEPARTMENT OF PATHOLOGY, [address] [address] [facility] Permit #[id number] Yinka Gil M.D. Director Erika Dominguez M.D. Harness Brusher Dir cottonor -- 62 CHOLESTEROL INTERPRETATION: Desirable: Less than 200 MG/DL Borderline-High Risk: 200-239 MG/DL High-Risk: 240 MG/DL and over 63 HDL INTERPRETATION: Undesirable: High Risk: Less than 40 MG/DL Desirable: Low Risk: Greater than 60 MG/DL 64 LDL INTERPRETATION: Low Risk Optimal Level: LDL Less than 100 MG/DL Near or Above Optimal: LDL 100-129 MG/DL Borderline High Risk: LDL 130-159 MG/DL High Risk: LDL 160-189 MG/DL Very High Risk: LDL Greater than 189 MG/DL 65 Anion gap measurement may be of limited value in the presence of any alkalosis, especially in a combined acid base disorder. . 66 Note change in reference range as of 01/31/08. The change was based on recommendations from the [place] Diabetes Association. 67 Please note change in reference range effective 07 . 68 AA 07/15/08 69 FASTING 70 CHOLESTEROL INTERPRETATION: Desirable: Less than 200 MG/DL Borderline-High Risk: 200-239 MG/DL High-Risk: 240 MG/DL and over 71 HDL INTERPRETATION: Undesirable: High Risk: Less than 40 MG/DL Desirable: Low Risk: Greater than 60 MG/DL 72 LDL INTERPRETATION: Low Risk Optimal Level: LDL Less than 100 MG/DL Near or Above Optimal: LDL 100-129 MG/DL Borderline High Risk: LDL 130-159 MG/DL High Risk: LDL 160-189 MG/DL Very High Risk: LDL Greater than 189 MG/DL 73 Classification: Desirable . 74 Classification: Low . 75 CALCULATED LDL APPROXIMATES THE VALUE OF A DIRECT LDL MEASUREMENT. Classification: Near or above optimal . 76 ---- RUN DATE: 06/21/07 [facility] NMI LIVE PAGE 1 RUN TIME: 1621 Specimen Inquiry RUN USER: INTERFACE [id number] MADELEINE SWAIN 57/F <REG REF 06/20> ([id number]) Prabhu Garza MD -- Specimen: [id number] SOUT Spec Date: 06/20/[address]: Prabhu novoa MD Spec Type: SURGICAL P Received: 06/20/07-3904 Copies to: Simona Sommers MD SPECIMEN RECTAL POLYP BIOPSY HISTORY POST-OP DIAGNOSIS: Small rectal polyp CLINICAL INFORMATION: Patient for screening colonoscopy with positive fam edna history of colon carcinoma (father); negative colonoscopy 2001 GROSS DESCRIPTION The specimen is received in formalin labelled Madeleine Swain, Rectal Polyp Biopsy, and consists of a monreal, soft tissue fragment measuring 0.3 x 0.2 x 0.2 cm. Submitted entirely, one cassette. DIAGNOSIS Colon, rectum, biopsy - A) Tubular adenoma. B) No high grade dysplasia or malignancy. Signed Electronically by: YINKA GIL MD 06/21/07 1621 -- -- DEPARTMENT OF PATHOLOGY, [address] [place] [address] [facility] Permit #[id number] Yinka Gil M.D. Director of [employer] -- 77 Classification: Borderline High . 78 CALCULATED LDL APPROXIMATES THE VALUE OF A DIRECT LDL MEASUREMENT. Classification: Borderline High . 79 Anion gap measurement may be of limited value in the presence of any alkalosis, especially in a combined acid base disorder. . 80 Classification: High . 81 CALCULATED LDL APPROXIMATES THE VALUE OF A DIRECT LDL MEASUREMENT. Classification: Borderline High . 82 ---- RUN DATE: 03/29/07 [facility] NMI LIVE PAGE 1 RUN TIME: 822 Specimen Inquiry RUN USER: INTERFACE [id number] MADELEINE SWAIN 57/F <REG REF 03/26> ([id number]) Simona Patino MD -- Specimen: [id number] SOUT Spec Date: 03/26/[address] [facility] [address]: Simona mueller MD Spec Type: CYTOLOGY Received: 03/27/07-1001 Copies to: SOURCE ECTOCERVICAL/ENDOCERVICAL Thin Prep with Reflex HPV Test PATIENT INFORMATION ACTUAL COLLECTION DATE: 03/26/07 POST MENOPAUSAL? Yes ADEQUACY OF SPECIMEN Satisfactory for evaluation * Transformation zone component cannot be definitely identified due to prese nce * of atrophy or other hormonal changes. * DIAGNOSIS NEGATIVE FOR INTRAEPITHELIAL LESION OR MALIGNANCY * This Pap test was evaluated with the assistance of the [employer] Pap Test Imaging System. The Pap Smear is a screening test designed to aid in the detection of premalign ant and malignant conditions of the uterine cervix. It is not a diagnostic procedure a nd should not be used as the sole means of detecting cervical cancer. Both false- positive and false-negative reports do occur. Depending on your risk status, a Pap smear leda uld be obtained and evaluated every one to three years. Final Interpretation electronically signed by: Jeremias SY(ASCP) 03/29/07 0822 -- -- DEPARTMENT OF PATHOLOGY, [address] [place] [address] [facility] Permit #[id number] Yinka Gil M.D. Director of Laboratories Maryanne Yan II Pathologist -- 83 ---- RUN DATE: 12/27/05 [facility] NMI TEST PAGE 1 RUN TIME: 929 Specimen Inquiry RUN USER: INTERFACE [id number] MADELEINE SWAIN 55/F <REG REF 12/21> ([id number]) Simona Patino MD. -- Specimen: [id number] Spec Date: 12/21/[address]: Bethany Morales MD. Spec Type: CYTOLOGY Received: 12/26/05-851 Copies to: SOURCE ECTOCERVICAL/ENDOCERVICAL Thin Prep with Reflex HPV Test PATIENT INFORMATION ACTUAL COLLECTION DATE: 12/21/05 ? NO POST MENOPAUSAL? No HYSTERECTOMY? No ADEQUACY OF SPECIMEN Satisfactory for evaluation * Transformation zone component identified * DIAGNOSIS NEGATIVE FOR INTRAEPITHELIAL LESION OR MALIGNANCY * The Pap Smear is a screening test designed to aid in the detection of premalign ant and malignant conditions of the uterine cervix. It is not a diagnostic procedure an d should not be used as the sole means of detecting cervical cancer. Both false-positive and false-negative reports do occur. Depending on your risk status, a Pap smear leda uld be obtained and evaluated every one to three years. Signed Jeremias SY CT(ASCP) 12/27/05 -- -- DEPARTMENT OF PATHOLOGY, [address] [place] [address] [facility] Permit #[id number] Enrique Morales II, M.D. Director Yinka Gil M.D. Harness Brusher D irector -- 84 Anion gap measurement may be of limited value in the presence of any alkalosis, especially in a combined acid base disorder. . 85 Classification: Borderline High . 86 CALCULATED LDL APPROXIMATES THE VALUE OF A DIRECT LDL MEASUREMENT. Classification: Borderline High . 87 Anion gap measurement may be of limited value in the presence of any alkalosis, especially in a combined acid base disorder. . 88 Classification: High . 89 CALCULATED LDL APPROXIMATES THE VALUE OF A DIRECT LDL MEASUREMENT. Classification: High . 90 Effective October 03, 2002 please note change in reference range. 91 ATYPICAL SQUAMOUS METAPLASTIC CELLS OF UNDETERMINED SIGNIFICANCE ATYPICAL GLANDULAR CELLS OF UNDETERMINED SIGNIFICANCE Procedures Date Code Description Status 10/20/2017 10148 Removal Of Foreign Body Completed 07/01/2016 84736 EKG, at Least 12 Leads w/Interpretation and Report Completed 04/03/2014 43108 EKG, at Least 12 Leads w/Interpretation and Report Completed 02/15/2012 04457 Audiometric Screening Test, Pure Tone, Air Only Completed 12/21/2005 99114 EKG, at Least 12 Leads w/Interpretation and Report Completed 10/24/2005 89880 Excision Of Lesion (Trunk,Arm,Leg) .6 To 1 CM. Completed 10/24/2005 55411 Excision Of Lesion(Trunk,Arm,Leg) Completed 06/12/2001 [id number] Colonoscopy Completed Encounters Type Date Location Provider Dx Diagnosis Office Visit 09/20/2017 Main Office [place], Z00.00 Encntr for general 9:30a Zoila, R.D. adult medical exam w/o abnormal findings E78.5 Hyperlipidemia, unspecified E03.9 Hypothyroidism, unspecified R94.5 Abnormal results of liver function studies Z23 Encounter for immunization Office Visit 04/17/2017 10:00a Main Office Sara S90.562A Insect bite Shortle, [employer]ENANT GOVERNOR (nonvenomous), left ankle, initial encounter Z23 Encounter for immunization Office Visit 01/24/2017 11:45a Main Office Madeleine John, R05 Cough MANIPULATIVE THERAPY SPECIALIST-C Office Visit 09/23/2016 9:30a Main Office [place], Z00.00 Encntr for Zoila, R.Leigh general adult medical exam w/o abnormal findings E78.4 Other hyperlipidemia Office Visit 07/01/2016 11:15a Main Office [place], 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 osteoarthritis, left knee Z23 Encounter for immunization Office Visit 01/06/2016 11:30a Main Office [place], E78.5 Hyperlipidemia, M.Leigh, R.D. unspecified E03.9 Hypothyroidism, unspecified M25.569 Pain in unspecified knee Office Visit 04/03/2014 8:45a Main Office Naty Rothman V70.0 Examination General Storm, MANIPULATIVE THERAPY SPECIALIST-C Medical Routine AT Health Care Facility 272.4 Hyperlipidemia Other Unspec 782.9 Skin & Integumentary Tissue Other Symptoms V04.81 Need For Prophylactic Vaccination & Inoculation/Influenza Office Visit 03/06/2012 12:00p Main Office Simona Osborne 824.2 FX Ankle Lateral Zoila Morales Malleolus Closed Office Visit 02/15/2012 8:15a Main Office Simona Osborne V70.0 Examination General Andrew M.D. Medical Routine AT Health Care Facility 244.9 Hypothyroidism Other Unspec 272.0 Hypercholesterolemia Pure 780.57 Unspecified Sleep Apnea 389.9 Hearing Loss Unspec V04.81 Need For Prophylactic Vaccination & Inoculation/Influenza Office Visit 01/31/2011 10:30a Main Office Naty Rothman 924.3 Contusion Toe Storm, MANIPULATIVE THERAPY SPECIALIST-C Office Visit 10/19/2010 4:00p Main Office Naty Rothman 911.4 Injury Superficial Storm, MANIPULATIVE THERAPY SPECIALIST-C Insect Bite Trunk Nonvenomous W/O Infect Office Visit 03/15/2010 9:15a Main Office Simona Osborne V70.0 Examination General Andrew M.D. Medical Routine AT Health Care Facility 300.00 Anxiety State Unspec 272.0 Hypercholesterolemia Pure 244.9 Hypothyroidism Other Unspec 728.71 Fibromatosis Plantar Fascia 473.9 Sinusitis Chronic Unspec V72.31 Routine Transport Conductor Examination 780.57 Unspecified Sleep Apnea Office Visit 03/23/2009 3:45p Main Office Simona Osborne 300.00 Anxiety State Andrew M.D. Unspec 717.7 Chondromalacia Of Patella 272.0 Hypercholesterolemia Pure 278.00 Obesity Unspec Office Visit 12/19/2008 10:00a Main Office Simona Osborne 300.00 Anxiety State Andrew M.D. Unspec 717.7 Chondromalacia Of Patella Office Visit 09/17/2008 Main Office Simona Osborne 272.0 Hypercholesterolemia Pure 12:45p Zoila Morales 278.00 Obesity Unspec 308.9 Stress Reaction Unspec Acute 719.46 Pain Joint Lower Leg Office Visit 08/06/2008 10:30a Main Office Simona Osborne V70.0 Examination General Andrew M.D. Medical Routine AT [facility] 272.0 Hypercholesterolemia Pure 278.00 Obesity Unspec 308.9 Stress Reaction Unspec Acute 719.46 Pain Joint Lower Leg 244.9 Hypothyroidism Other Unspec V72.31 Routine Transport Conductor Examination Office Visit 01/11/2008 Main Office Naty Rothman 959.5 Injury Finger Other & 4:45p Masoud, MANIPULATIVE THERAPY SPECIALIST-C Unspec Office Visit 04/27/2007 Main Office Simona Osborne 272.0 Hypercholesterolemia Pure 11:45a Zoila Morales 244.9 Hypothyroidism Other Unspec 782.1 Rash & Other Nonspec Skin Eruption Office Visit 03/26/2007 12:15p Main Office Simona Osborne V70.0 Examination General Andrew M.D. Medical Routine AT Health Care Facility 244.9 Hypothyroidism Other Unspec 272.0 Hypercholesterolemia Pure 728.71 Fibromatosis Plantar Fascia 311 Depressive Disorder Not Elsewhere Spec 782.1 Rash & Other Nonspec Skin Eruption V06.8 Combination Diseases Other Vaccination & Inoculation Office Visit 01/18/2006 9:30a Main Office Simona Osborne 728.71 Fibrombeatriz Morales M.D. Plantar Fascia 327.23 Obstructive Sleep Apnea Adult & Pediatric Office Visit 12/21/2005 8:00a Main Office Simona Osborne V70.0 Examination General Andrew M.D. Medical Routine AT Health Care Facility 272.0 Hypercholesterolemia Pure 244.9 Hypothyroidism Other Unspec Office Visit 10/17/2005 12:00p Main Office Simona Osborne 448.1 Nevus Non- Neoplastic Zoila Morales Office Visit 08/04/2005 11:30a Main Office Adwoa Bermudez 461.8 Sinusitis Acute Other Eric, F.N.P.C. Office Visit 03/01/2004 3:00p Main Office Simona Osborne 244.9 Hypothyroidism Other Zoila Morales Unspec 311 Depressive Disorder Not Elsewhere Spec 386.10 Vertigo Peripheral Unspec Office Visit 01/26/2004 4:15p Main Office Simona Osborne 311 Depressive Disorder Zoila Morales Not Elsewhere Spec 727.41 Ganglion Joint 723.1 Cervicalgia 244.9 Hypothyroidism Other Unspec Office Visit 07/22/2003 9:00a Main Office Simona Osborne 311 Depressive Disorder Zoila Morales Not Elsewhere Spec 782.1 Rash & Other Nonspec Skin Eruption Office Visit 02/24/2003 3:00p Main Office Simona Osborne V72.3 Examination Zoila Morales Gynecological Office Visit 01/17/2003 10:45a Main Office Simona Osborne 311 Depressive Disorder Zoila Morales Not Elsewhere Spec Office Visit 12/27/2002 11:00a Main Office Simona [facility] [address] Depressive Disorder Zoila Morales Not Elsewhere Spec Office Visit 01/22/2002 3:15p Main Office Simona Osborne 784.0 Headache Zoila Morales Office Visit 11/22/2001 9:15a Main Office Simona Osborne 780.57 Unspecified Sleep Zoila Morales Apnea 627.2 Menopausal Or Female Climacteric State, Symptomatic V72.3 Examination Gynecological Office Visit 08/25/2001 9:30a Main Office Adwoa Bermudez 380.10 Otitis Externa Eric, F.N.P.C. Infective Unspec 682.9 Cellulitis & Abscess Unspec Site Plan of Treatment 11/30/2018 - Charlotte Naranjo M.D., [id number] Encounter for general adult medical examination without abnoNew Xrays:Mammography, Screening; Bilateral, Scheduled: 11/30/18Recommendations:The 5 Year Plan for your preventive health care is: Colonoscopy is due August 2019. Flu shot yearly. You received a Pneumovax (pneumonia shot) today. I recommend the Shingrix vaccine when it is available through our office or at a local pharmacy. Annual exam at [facility]. Regular dental care. Eye exam yearly. Check your cholesterol and screen for diabetes regularly. Regular mammograms and bone density scans.E78.5 Hyperlipidemia, [id number] Hypothyroidism, unspecified
[2018-12-05 21:41] VITALS: BP 114/61
--- NOTE | 2018-12-05 21:44 | UC ---
Laceration HPI - HPI Summary HPI Summary: 68-year-old female presents with laceration to her right thumb. States she accidentally cut it while opening an aluminum can approximately one hour prior to arrival. Bleeding was controlled prior to arrival with direct pressure. States has full range of motion of the thumb. Last tetanus was 2-1/2 years ago. Denies any numbness or tingling. - History Of Current Complaint Chief Complaint: UCLaceration Stated Complaint: THUMB LAC Time Seen by Provider: 12/05/18 21:41 Hx Obtained From: Patient Pain Intensity: 0 - Allergies/Home Medications Allergies/Adverse Reactions: Allergies Allergy/AdvReac Type Severity Reaction Status Date / Time Sulfa (Sulfonamide Allergy Severe Nausea Verified 12/05/18 21:42 Antibiotics) PMH/Surg Hx/FS Hx/Imm Hx Endocrine History: Hypothyroidism, Dyslipidemia Psychological History: Depression - Surgical History Surgical History: Yes Surgery Procedure, Year, and Place: 1967 - nasal surgery after trauma, [place]. 1991 - nasal septum revision, [facility]. 1988, 1992 LEFT hand surgery; [facility]. [facility], DENTAL OFFICE. 2008 REMOVAL OF KWIRE FROM LEFT MIDDLE FINGER, [facility] - Family History Known Family History: Positive: Non-Contributory - Social History Occupation: Employed Full-time Lives: With Family Alcohol Use: Daily Alcohol Amount: 1 GLASS WINE 3-4 TIMES PER WEEK Substance Use Type: None Smoking Status (MU): Never Smoked Tobacco Have You Smoked in the Last Year: No - Immunization History Most Recent Influenza Vaccination: 2017 Most Recent Tetanus Shot: UNKNOWN Most Recent Pneumonia Vaccination: NEVER Review of Systems All Other Systems Reviewed And Are Negative: Yes Constitutional: Positive: Negative Skin: Positive: Other - See HPI Respiratory: Positive: Negative Cardiovascular: Positive: Negative Gastrointestinal: Positive: Negative Genitourinary: Positive: Negative Musculoskeletal: Positive: Negative Neurological: Positive: Negative Is Patient Immunocompromised?: No Physical Exam - Summary Physical Exam Summary: GENERAL APPEARANCE: Well developed, well nourished, alert and cooperative, and appears to be in no acute distress. CARDIAC: Normal S1 and S2. No S3, S4 or murmurs. Rhythm is regular. There is no peripheral edema, cyanosis or pallor. Extremities are warm and well perfused. Capillary refill is less than 2 seconds. Peripheral pulses intact. LUNGS: Clear to auscultation without rales, rhonchi, wheezing or diminished breath sounds. ABDOMEN: Positive bowel sounds. Soft, nondistended, nontender. No guarding or rebound. No masses or hepatosplenomegally. MUSKULOSKELETAL: Full ROM intact the right thumb. Circulation and sensation intact. SKIN: 1.5 cm C-shaped flap laceration to the dorsal aspect of the right thumb over the DIP with bleeding controlled. No foreign body noted. Triage Information Reviewed: Yes Vital Signs: Initial Vital Signs Temp 98.3 F 12/05/18 21:35 Pulse 64 12/05/18 21:35 Resp 18 12/05/18 21:35 BP 114/61 12/05/18 21:35 Pulse Ox 97 12/05/18 21:35 Vital Signs Reviewed: Yes Laceration Repair - Laceration Repair 1 Description: Linear - C-shaped flap laceration Laceration Size After Repair: Length (cm) - 1.5 cm Modified For Repair: No Cleansing Completed Via Routine Prep: Yes Irrigation With Pressure Irrigation Device: Yes Closure Material: Skin Adhesive, SteriStrips Laceration Course/Dx - Course/Dx Course Of Treatment: 68-year-old female presents with laceration to her right thumb. States she accidentally cut it while opening an aluminum can approximately one hour prior to arrival. Bleeding was controlled prior to arrival with direct pressure. States has full range of motion of the thumb. Last tetanus was 2-1/2 years ago. Denies any numbness or tingling. Afebrile. Vital signs stable. Patient had a 1.5 cm C-shaped flap laceration to the dorsal aspect of her right thumb over the DIP with bleeding controlled. The wound was explored and no foreign body was noted. The wound was irrigated with a copious amount of sterile saline by the RN prior to repair. The the flap was secured in good alignment with a Steri-Strip the wound margins were then closed using a skin adhesive. An adhesive bandage was applied to the wound and the patient was placed in a thumb spica splint by the RN. Circulation and sensation were intact. Post- application. Patient is to return here or follow up with her primary care provider if needed. Wound care, anticipatory guidance and warning symptoms were reviewed with the patient. Verbalizes understanding and agrees with plan of care. - Differential Dx - Laceration/Wound Differental Diagnoses: Foreign Body, Laceration - Diagnosis Provider Diagnosis: Laceration of right thumb Discharge - Sign-Out/Discharge Documenting (check all that apply): Patient Departure All imaging exams completed and their final reports reviewed: No Studies - Discharge Plan Condition: Stable Disposition: HOME Patient Education Materials: Finger Laceration (ED), Skin Adhesive Care (ED), Steristrips (ED) Referrals: Charlotte Gonzalez MD [Primary Care Provider] - () Additional Instructions: Your laceration as repaired with a combination of skin adhesive and Steri- Strips. The adhesive will slowly wear off over the next several days. Keep the adhesive dry for the next 24 hours. After 24 hours you may shower and wash your hands as ususal. Do not apply any lotions aor ointments to the adhesive as this may dissolve the adhesive and cause the wound to reopen. The Steri-Strips will slowly peel up from the ends over the next few days. You may trim the ends as needed but do not pull off or you may reopen the wound. Keep the wound covered with a dressing. Change this at least once a day or anytime the dressing becomes wet or soiled. Wear the thumb spica splint that was applied in the clinic for the next 7 days to prevent the wound from reopening. You may remove to shower but should wear at all other times. Take acetaminophen (Tylenol) or ibuprofen (Advil, Motrin) according to directions as needed for pain. Watch for signs of infection including fever greater than 100.5 F, severe pain not managed with with pain medicine, redness that spreads, swelling of the finger, pus draining from the wound, or any worsening of symptoms. Seek immediate medical attention if any of these occur. - Billing Disposition and Condition Condition: STABLE Disposition: Home - Attestation Statements Provider Attestation: Per institutional requirements, I have reviewed the chart, however, I was not consulted specifically or made aware of this patient by the midlevel provider. I did not personally evaluate, interact with , or disposition this patient.
[2018-12-05] MEDS ORDERED: Benzoin Compound STICK TOPICAL ONE (21:45)
== END 2018-12-05 22:10 | disposition home or self-care (01) ==
LOC: UCEAST 21:31
DX: S61.011A Laceration without foreign body of right thumb without damage to nail, initial encounter (principal); W26.8XXA Contact with other sharp object(s), not elsewhere classified, initial encounter; Y93.89 Activity, other specified; Y92.9 Unspecified place or not applicable; Z88.2 Allergy status to sulfonamides
CPT/HCPCS: 12001; 99212; G0463

== ENCOUNTER 2018-12-08 08:01 | Emergency (ER) | payer OTHER ==
[2018-12-08 08:15] VITALS: BP 112/66
--- NOTE | 2018-12-08 08:51 | UC ---
Skin Complaint HPI - HPI Summary HPI Summary: cut R thumb 4 days ago on sharp edge of can lid. was treated here that day with steri strips and dressing. was doing well until lst pm when she noted blodd coming from under dressing. she was able to cut edges of steri strips off but the bandaid is stuck to cut. denies increased pain or swelling - History of Current Complaint Chief Complaint: UCLaceration Time Seen by Provider: 12/08/18 08:23 Stated Complaint: RECHECK THUMB LACERATION Hx Obtained From: Patient Onset/Duration: Sudden Onset Current Severity: None Pain Intensity: 0 Aggravating Factor(s): Nothing Alleviating Factor(s): Nothing - Allergy/Home Medications Allergies/Adverse Reactions: Allergies Allergy/AdvReac Type Severity Reaction Status Date / Time Sulfa (Sulfonamide Allergy Severe Nausea Verified 12/08/18 08:15 Antibiotics) Home Medications: Home Medications Mometasone Furoate [Nasonex] 50 mcg NA DAILY PRN 12/08/18 [History Confirmed ] Simvastatin 10 mg PO DAILY 12/08/18 [History Confirmed 12/08/18] PMH/Surg Hx/FS Hx/Imm Hx Previously Healthy: Yes Endocrine History: Hypothyroidism Psychological History: Depression - Surgical History Surgical History: Yes Surgery Procedure, Year, and Place: 1967 - nasal surgery after trauma, [facility]. 1991 - nasal septum revision, [place]. 1988, 1992 LEFT hand surgery; [facility]. [place] [facility], DENTAL OFFICE. 2008 REMOVAL OF KWIRE FROM LEFT MIDDLE FINGER, [facility] - Family History Known Family History: Positive: None, Non-Contributory - Social History Occupation: Employed Full-time Lives: With Family Alcohol Use: Daily Alcohol Amount: 1 GLASS WINE 3-4 TIMES PER WEEK Substance Use Type: None Smoking Status (MU): Never Smoked Tobacco Have You Smoked in the Last Year: No - Immunization History Most Recent Influenza Vaccination: 2017 Most Recent Tetanus Shot: UNKNOWN Most Recent Pneumonia Vaccination: NEVER Review of Systems All Other Systems Reviewed And Are Negative: Yes Constitutional: Positive: Negative Respiratory: Positive: Negative Cardiovascular: Positive: Negative Musculoskeletal: Positive: Negative Neurological: Positive: Negative Psychological: Positive: Negative Is Patient Immunocompromised?: No Physical Exam Triage Information Reviewed: Yes Appearance: Well-Appearing, No Pain Distress, Well-Nourished Vital Signs: Initial Vital Signs Temp 97.5 F 12/08/18 08:09 Pulse 54 12/08/18 08:09 Resp 16 12/08/18 08:09 BP 112/66 12/08/18 08:09 Pulse Ox 98 12/08/18 08:09 Vital Signs Reviewed: Yes Respiratory Exam: Normal Respiratory: Positive: Lungs clear Cardiovascular Exam: Normal Cardiovascular: Positive: RRR Neurological Exam: Normal Psychological Exam: Normal Skin: Positive: Other - R thumb: steri strips and bandaid pad held on with tape. after dressing removed: no redness or bleeding, no swelling or drainage. wound edged are well aproximated. Course/Dx - Course Course Of Treatment: wound was cleansed with betadine swab and new steri strips applied with tube gauze dressing - Differential Diagnoses - Skin Complaint Differential Diagnoses: Cellulitis - Diagnoses Provider Diagnosis: Laceration of thumb without complication Discharge - Sign-Out/Discharge Documenting (check all that apply): Patient Departure All imaging exams completed and their final reports reviewed: No Studies - Discharge Plan Condition: Good Disposition: HOME Referrals: Charlotte Gonzalez MD [Primary Care Provider] - 2 Days (if swelling or increased pain occur) Additional Instructions: keep dressing intact and dry for next 3 days. then remove gauze dressing and apply clean bandaid for next 3-4 days report signs of infection - Billing Disposition and Condition Condition: GOOD Disposition: Home
== END 2018-12-08 08:57 | disposition home or self-care (01) ==
LOC: UCEAST 08:01
DX: S61.011D Laceration without foreign body of right thumb without damage to nail, subsequent encounter (principal); X58.XXXD Exposure to other specified factors, subsequent encounter; E03.9 Hypothyroidism, unspecified; F32.9 Major depressive disorder, single episode, unspecified; Z88.2 Allergy status to sulfonamides
CPT/HCPCS: 99211; G0463